=== PATIENT | female | born 1975 | race Caucasian/White ===

== ENCOUNTER 2019-06-22 13:58 | Outpatient (CLI) | payer OTHER, SELFPAY ==
--- NOTE | 2019-06-22 14:04 | XR_ITS ---
WS: [id number] LATERAL CERVICAL SPINE: 3 view. Lateral radiographs are performed in upright neutral, flexion and extension to the patient's toleranc e. HISTORY: CERVICAL DISC DISORDER WITH MYELOPATHY OF MID CERVICAL REGION COMPARISON: 01/29/2019 Straightening of the normal cervical lordosis. On extension there is 1.9 mm retrolisthesis of C2 and C4. During flexion the alignment remains normal. Small osteophytes extend anteriorly and posteriorly from C4 and C5. No fracture. XR/XR cervical spine fl/ex [id number] IMPRESSION: 1. Minimal retrolisthesis during extension of C2 and C4. No significant instab ility. Similar to the prior examination from 01/29/2019. 2. Mild spondylosis.
--- NOTE | 2019-06-22 14:04 | XR_ITS ---
WS: [id number] RIGHT SHOULDER: 3 VIEW(S) TECHNIQUE: Internal and external rotation with Y view. HISTORY: RIGHT SHOULDER PAIN COMPARISON: None available. No fracture or dislocation or soft tissue abnormality. Glenohumeral and AC joints are unremarkable. XR/XR shoulder RT min 2V* [id number] IMPRESSION: Normal RIGHT shoulder.
--- NOTE | 2019-06-22 14:05 | MR_ITS ---
WS: [id number] MRI CERVICAL SPINE HISTORY: CERVICAL DISC DISORDER WITH MYELOPATHY OF MID CERVICAL SPINE COMPARISON: 11/04/2018 Normal posterior cervical alignment. Small endplate osteophytes and disc bulging from C2-3 through C6 -7. No fractures or marrow edema. Signal within the cervical cord is normal. Visualized posterior fossa is unremarkable. Craniocervical junction, C1 and C2 relationship, odontoid process and soft tissues are normal. C2-C3: Normal. C3-C4: Normal. C4-C5: Mild osteophytic ridging. Mild disc bulging with no stenosis. C5-C6: Shallow central to LEFT paracentral disc protrusion and small vertebral body osteophytes. No s ignificant stenosis. Similar to the prior study. C6-C7: Mild osteophytic ridging and annular disc bulging. No significant stenosis C7-T1: Small osteophytes without stenosis. Paraspinal soft tissue are normal. MR/MR cervical spin wo con* [id number] IMPRESSION: 1. No significant central or foraminal stenosis. 2. Multilevel mild disc bulging and foraminal osteophytes as above. No signifi cant progression of disease since 11/04/2018. 3. Shallow LEFT paracentral disc protrusion at C5-6.
== END 2019-06-22 13:59 | disposition home or self-care (01) ==
LOC: RADWPI 14:02
PROVIDERS: Family Provider Family Medicine; PCP Family Medicine; Referring Provider Family Medicine; Visit Provider Licensed Practical Nurse
DX: M50.21 Other cervical disc displacement, high cervical region (principal); M25.78 Osteophyte, vertebrae; M47.892 Other spondylosis, cervical region
CPT/HCPCS: 72040; 72141; 73030

== ENCOUNTER → 2019-07-02 14:24 | Outpatient (BNVA) | payer OTHER, SELFPAY | PROVIDERS: Family Provider Family Medicine; PCP Family Medicine; Visit Provider Obstetrics & Gynecology | DX: N83.202 Unspecified ovarian cyst, left side (principal) | CPT/HCPCS: 76830 ==

== ENCOUNTER → 2019-07-03 11:48 | Outpatient (BNVA) | payer OTHER, SELFPAY | PROVIDERS: Family Provider Family Medicine; PCP Family Medicine; Referring Provider Licensed Practical Nurse; Visit Provider Psychiatry & Neurology Neurology | DX: M54.12 Radiculopathy, cervical region (principal); M79.601 Pain in right arm; Z87.891 Personal history of nicotine dependence | CPT/HCPCS: 95886; 95908 ==

== ENCOUNTER → 2019-07-07 16:17 | Outpatient (BNVA) | payer OTHER, SELFPAY | PROVIDERS: Family Provider Family Medicine; PCP Family Medicine; Visit Provider Internal Medicine | DX: I10 Essential (primary) hypertension (principal); K90.9 Intestinal malabsorption, unspecified; E03.9 Hypothyroidism, unspecified; G25.0 Essential tremor; G47.33 Obstructive sleep apnea (adult) (pediatric); Z99.89 Dependence on other enabling machines and devices; F32.9 Major depressive disorder, single episode, unspecified | CPT/HCPCS: 80053; 83036; 83540; 83550; 84443; 85025 ==

== ENCOUNTER 2019-07-20 09:04 | Outpatient (CLI) | payer OTHER, SELFPAY ==
--- NOTE | 2019-07-20 09:19 | XR_ITS ---
WS: [id number] KUB, 07/20/2019 Clinical Data: ureteral calculus Comparison: KUB, 06/01/2019. Findings: No abnormal intraabdominal masses or calcifications are seen. There is no dilatated small bowel or ev idence of obstruction. No definite renal or ureteral calculi are seen. There are phleboliths in the pelvis. There is a moder ate amount of fecal material throughout the colon. There is minimal calcification overlying the right ilium which is incidental. XR/XR KUB [id number] Impression: Negative KUB.
== END 2019-07-20 09:05 | disposition home or self-care (01) ==
LOC: RAD 09:10
PROVIDERS: Family Provider Family Medicine; PCP Family Medicine; Visit Provider Urology
DX: N20.1 Calculus of ureter (principal)
CPT/HCPCS: 74018; 81001

== ENCOUNTER 2019-08-05 15:23 | Outpatient (CLI) | payer OTHER, SELFPAY ==
--- NOTE | 2019-08-05 16:15 | CT_ITS ---
WS: [id number] CT CERVICAL SPINE TECHNIQUE: Noncontrast CT of the cervical spine with coronal and sagittal reformatted images. CLINICAL INFORMATION: Neck pain COMPARISON: MRI June 22, 2019 DLP: 1778.[address] scans at [facility] use at least one of these dose optimization techniques: automat ed exposure control; mA and/or kV adjustment per patient size (includes targeted exams where dose is matched to clinical indication); or iterative reconstruction. FINDINGS: Straightening of the normal cervical lordosis. No high-grade central canal narrowing. Normal C1-C2 ar ticulation. C2-C3: Normal. C3-C4: Normal. C4-C5: Mild osteophytic ridging. Mild facet arthropathy. Mild left and no significant right foraminal narrowing. C5-C6: Mild disc osteophytic ridging. Spinal canal and foramen are patent. Mild facet arthropathy. C6-C7: Disc osteophytic ridging. Spinal canal and foramen are patent. Mild facet arthropathy. C7-T1: No significant disc bulging. Spinal canal and foramen are patent. Visualized posterior nasopharynx: Normal. Prevertebral soft tissues: Normal. CT/CT cervical spin wo con* [id number] IMPRESSION: 1. Straightening of the normal cervical lordosis. 2. No significant central canal or foraminal stenosis unchanged since the prio r MRI. 3. Mild left C4-5 bony foraminal narrowing. 4. Mild facet arthropathy C4-C5 C5-C6 and C6-C7.
== END 2019-08-05 15:24 | disposition home or self-care (01) ==
LOC: RADWPI 15:25
PROVIDERS: Family Provider Family Medicine; PCP Internal Medicine; Visit Provider Licensed Practical Nurse
DX: M50.020 Cervical disc disorder with myelopathy, mid-cervical region, unspecified level (principal)
CPT/HCPCS: 72125

== ENCOUNTER 2019-10-13 12:23 | Outpatient (CLI) | payer OTHER, SELFPAY ==
--- NOTE | 2019-10-13 15:00 | XR_ITS ---
WS: [id number] XR KUB [id number] REASON FOR EXAM: URETEROLITHIASIS FINDINGS: Considerable fecal stasis throughout the colon is noted. Both kidneys today appear to be essentially normal in size configuration. In the proximal right urete r area there is a speck of calcification which may represent a stone. XR/XR KUB [id number] IMPRESSION: Questionable small stone at the ureter entrance into the pelvis. The right side
== END 2019-10-13 12:24 | disposition home or self-care (01) ==
LOC: RAD 12:24
PROVIDERS: Family Provider Family Medicine; PCP Internal Medicine; Visit Provider Urology
DX: N20.1 Calculus of ureter (principal); N30.80 Other cystitis without hematuria; Z87.442 Personal history of urinary calculi
CPT/HCPCS: 74018; 81001

== ENCOUNTER 2019-10-22 08:00 | Outpatient (CLI) | payer OTHER, SELFPAY | END 2019-10-22 09:00 | disposition home or self-care (01) | LOC: RADWPI 01-26 16:51 | PROVIDERS: PCP Internal Medicine; Visit Provider Specialist | DX: N94.6 Dysmenorrhea, unspecified (principal) | CPT/HCPCS: 85027 ==

== ENCOUNTER 2019-10-27 08:15 | Day surgery (SDC) | payer OTHER, SELFPAY ==
[2019-10-26 10:25] VITALS: BMI 37.8
--- NOTE | 2019-10-27 08:58 | ANES.PREANE2 ---
Pre-Anesthetic Assessment Pre-Anesthetic Assessment: Height/Weight: Height 1.63 m Weight 99.79 kg Preop Diagnosis: Menorrhagia with regular cycles, Dysmenorrhea Proposed Procedure: Operation Date: 10/27/19 10:00 Proposed Procedures p Hysteroscopy w/ Ablation w/ [id number]/N92.0/N94.6(Not Applicable) - Simón Barber MD Familial anesthetic complications: none Was Beta Poala taken within 24 hours: N/A Last intake: NPO > 8 ghrs Social: Social History: No alcohol and No tobacco Comment: former smoker Exam: Pre-Anes Outpt Exam: alert, oriented x 3, clear to auscultation bilaterally and regular rate & rhythm Airway: Cervical ROM: WNL MP: 3 Dentition: Full Pulmonary: Pulmonary: COPD and Sleep apnea (cpap) CV/HEM: CV/HEM: None reported : : None reported Hepatic: Hepatic: None reported GI: GI: GERD Metabolic: Metabolic: None reported Musc/skel: Musc/skel: None reported Neuropsych: Neuropsych: None reported Comments: cervical radiculopathy, essential tremor Anesthetic Plan: ASA status: 2 Anesthesia: MAC Risk of > 500 ml blood loss (7ml/kg in children): No PFSH Anesthesia PFSH: Medical History (Updated 10/22/19 @ 08:40 by Simón Barber MD) Cervical disc disorder with myelopathy of mid-cervical region Cervical disc disorder with radiculopathy Cystitis cystica Essential tremor History of kidney stones Malabsorption of iron Menorrhagia with regular cycle Menstrual headache Mixed stress and urge urinary incontinence Both urgency and stress incontinence. History of multiple pelvic surgeries including a fistula repair. At first visit for this August 2017 she elected to pursue more conservative options including pelvic floor exercises, bladder drill, pelvic rehabilitation etc. DOMINIC on CPAP Shoulder pain, right Spondylolisthesis of cervical region Surgical History H/O tubal ligation (~2000) History of colonoscopy (03/19/18) History of esophagogastroduodenoscopy (EGD) (03/19/18) History of hernia repair Developed hernia at ileostomy site. Required 2 different repairs with the last one using mesh. History of reversal of ileostomy History of vaginal surgery (~2010) Recto-vaginal fistula repairs (9 surgeries between 2010-). Includes use of mesh , fat flaps, and diverting ileostomy. S/P extracorporeal shock wave therapy (07/10/17) Dx: Left proximal ureteral stone with high-grade obstruction. Performed by Dr. Eaton at [facility] [place]. S/P extracorporeal shock wave therapy (08/23/17) Dx Left renal stone. Performed by Dr. Eaton at [facility] [place]. Family History Mother , at age 49 Brain aneurysm Father Diabetes Hypertension Other Heart disease Stroke Social History (Updated 10/22/19 @ 08:05 by Simón Barber MD) Smoking and tobacco status: former smoker Quit status (tobacco): has quit using tobacco Year quit tobacco: 04/10/2019 Alcohol intake: never Current occupation: [employer] Reproductive History: Date of last menstrual period: 07/08/19 Para: 3 Spontaneous abortions: No Data Anesthesia Cardiac Studies: No Data to Display
[2019-10-27 09:06] LABS: OR HCG Qualitative Urine Negative (Negative)
[2019-10-27] MEDS: sodium chloride 0.9% 1,000 ML 30 ML IV (09:23)
[2019-10-27] MEDS: ketorolac 30 mg/mL INJ IVP (09:23)
--- NOTE | 2019-10-27 09:41 | W.PM.OPSUD ---
Surgery/Procedure H&P Update DATE OF PROCEDURE: October 27, 2019 DATE H&P PERFORMED: 10/22/19 H&P UPDATE INFORMATION: I have reviewed H&P completed within last 30 days, I have examined patient prior to procedure, No changes to prior documentation and H&P is in [facility] EMR on date indicated PREOP DIAGNOSIS: Menorrhagia with regular cycles, Dysmenorrhea PLANNED PROCEDURE: Operation Date: 10/27/19 10:00 Proposed Procedures p Hysteroscopy w/ Ablation w/ [id number]/N92.0/N94.6(Not Applicable) - Simón Barber MD
--- NOTE | 2019-10-27 11:09 | P.OP_ITS ---
Operative Report Date of procedure: October 27, 2019 Pre-op Diagnosis: Menorrhagia with regular cycles, Dysmenorrhea Post-op Diagnosis: Menorrhagia with regular cycles, Dysmenorrhea Procedure Done: Hysteroscopy with endometrial ablation with NovaSure, Paracervical block Specimens removed/disposition: None Surgeon: Simón Barber Anesthesia: MAC and Other (Paracervical block) Estimated blood loss (mL): 5 IV fluids (mL): 600 Complications: None Findings: First to second-degree uterine prolapse with second-degree cystocele. Bulge of the left labia which is completely reducible, consistent with probable fluid- filled hernia. No bowel within the labia identified on palpation. Brief History: 44-year-old white female 3, para 3 who is status post tubal ligation. She had first presented to the office in March 2019 due to heavy painful menses. She reported that her cycles occurred every 25 days and she would bleed for 5 days with 4 days being heavy. During the heaviest time she was changing a pad every 2-3 hours. She was reporting up to quarter sized clots. She had been found to be iron deficient at that time. She had an ultrasound performed with no abnormalities noted. Endometrial biopsy was also negative. She was started on daily high-dose progesterone (norethindrone 7.5 mg daily) in an attempt to control her bleeding, which did stop the bleeding as long as she took the medication. At this point she wished to proceed to more definitive treatment in the form of an endometrial ablation. Procedure: The patient was taken to the operating room where IV sedation was started. She was prepped and draped in the usual sterile fashion in the dorsal supine position with legs in Braden style stirrups. Sequential compression boots had been placed prior to starting the case. Patient had voided just before coming to the operating room. Exam under anesthesia was performed and the patient was noted to have first to second-degree uterine prolapse with second-degree cystocele. Bulge of the left labia majora was present and consistent with a probable fluid-filled hernia. A weighted speculum was placed in the vagina and the cervix was grasped with a single-tooth tenaculum. A paracervical block was performed with a total of 11 mL of 2% lidocaine with epinephrine used. The cervix was serially dilated until a operative hysteroscope could be passed. Crystalloid solution was used as a distention media. The endometrial cavity was inspected and appeared normal. Both tubal ostia were identified. Using the NovaSure sound, endometrial cavity length was measured at 5.5 cm. The NovaSure device was inserted and device was deployed. The device was moved up and down and left and right until no further with adjustment occurred. Uterine width was measured at 4.2 cm. Settings were entered in the NovaSure machine and wattage was set at 127 Kaur. Cavity integrity check was performed and integrity confirmed. Device was then activated. Total treatment time was 30 seconds. Device was removed. The tenaculum was removed and there was minimal bleeding from the tenaculum site. Patient tolerated the procedure well. Sponge and needle counts were correct. DRAINS: None POSTOPERATIVE STATUS: The patient was transferred to the recovery room in satisfactory condition DISPOSITION: Discharge to home when criteria was met. FOLLOWUP APPOINTMENT: Followup appointment had been scheduled on 11/09/2019 in my office. MEDICATIONS: She is to resume her usual home medications. She is to stop the norethindrone.
[2019-10-27 11:14] VITALS: BP 172/93; PULSE 97; RESP 18; TEMP 36.6; O2SAT 98
[2019-10-27 11:33] VITALS: RESP 18; O2SAT 97
[2019-10-27] MEDS: oxyCODONE-APAP 10-325 mg Tablet 1 TAB PO (11:33)
[2019-10-27 11:49] VITALS: BP 167/97; PULSE 88; RESP 18; TEMP 36.6; O2SAT 98
== END 2019-10-27 12:06 | disposition home or self-care (01) ==
PROVIDERS: PCP Internal Medicine; Visit Provider Obstetrics & Gynecology
PROC: 0U598ZZ Destruction of Uterus, Via Natural or Artificial Opening Endoscopic (ICD-10-PCS; CPT 58563; principal; 2019-10-27 10:00)
DX: N92.0 Excessive and frequent menstruation with regular cycle (principal); N94.6 Dysmenorrhea, unspecified; Z87.891 Personal history of nicotine dependence; J44.9 Chronic obstructive pulmonary disease, unspecified; G47.30 Sleep apnea, unspecified; K21.9 Gastro-esophageal reflux disease without esophagitis; G47.33 Obstructive sleep apnea (adult) (pediatric)
CPT/HCPCS: 58563; 12345; 81025; 84703; J1885; J2001; J2405; J2704; J3010; J7030

== ENCOUNTER → 2019-12-10 10:20 | Outpatient (BNVA) | payer OTHER, SELFPAY | PROVIDERS: PCP Internal Medicine; Visit Provider Nurse Practitioner Family | DX: I10 Essential (primary) hypertension (principal); Z79.899 Other long term (current) drug therapy | CPT/HCPCS: 80053 ==

== ENCOUNTER → 2019-12-14 09:52 | Outpatient (BNVA) | payer OTHER, SELFPAY | PROVIDERS: PCP Internal Medicine; Visit Provider Urology | DX: N30.80 Other cystitis without hematuria (principal); N20.0 Calculus of kidney | CPT/HCPCS: 81001 ==

== ENCOUNTER 2019-12-28 16:58 | Emergency (ER) | payer OTHER, SELFPAY ==
[2019-12-28 17:20] VITALS: BP 109/78; PULSE 82; RESP 14; TEMP 36.5; O2SAT 98; BMI 37.8
[2019-12-28 17:50] LABS: Basophils % 0.6 %; Eosinophils # 0.1 10^3/uL (0.0-0.8); Eosinophils % 2.1 %; Hematocrit 36.6 % (37.0-47.0); Hemoglobin 12.2 g/dL (11.5-15.3); Lymphocytes # 2.9 10^3/uL (0.8-4.8); Mean Corpuscular HGB Conc 33.3 g/dL (30.0-36.0); Mean Corpuscular Hemoglobin 27.7 pg (28.0-34.0); Mean Platelet Volume 9.9 fL (7.4-10.4); Monocytes # 0.5 10^3/uL (0.2-0.9); Monocytes % 8.3 %; Neutrophils # 2.92 10^3/uL (1.8-7.7); Neutrophils % 44.7 %; Nucleated Red Blood Cells % 0 %; Platelet Count 282 10^3/cmm (130-400); Red Blood Count 4.41 10^6/uL (4.1-5.3); Red Cell Distribution Width 12.9 % (12.1-15.1); White Blood Count 6.5 10^3/uL (4.0-10.0)
[2019-12-28 18:04] LABS: Alanine Aminotransferase 32 U/L (0-33); Albumin Level 3.7 g/dL (3.5-5.2); Alkaline Phosphatase 55 IU/L (35-105); Anion Gap 15.1 (5-19); Aspartate Amino Transferase 28 U/L (0-32); Blood Urea Nitrogen 13 mg/dL (6-20); Calcium 8.2 mg/dL (8.5-10.5); Carbon Dioxide 27 mmol/L (22-29); Chloride 100 mmol/L (98-107); Globulin 2.5 g/dL (1.3-4.6); Glomerular Filtration Rate 108.6 mL/min (90-130); Glucose 114 mg/dL (65-115); Lipase 17 U/L (13-60); Osmolality Calculated 285 mOsm/kg (285-295); Potassium 3.1 mmol/L (3.5-5.1); Sodium 139 mmol/L (136-145); Total Bilirubin 0.2 mg/dL (0.15-1.2); Total Protein 6.2 g/dL (6.6-8.7)
--- NOTE | 2019-12-28 18:46 | CTR_ITS ---
PROCEDURE INFORMATION: Exam: CT Abdomen And Pelvis With Contrast Exam date and time: 12/28/2019 6:53 PM Age: 44 years old Clinical indication: Abdominal pain; Generalized; Prior surgery; Surgery date: 6+ months; Surgery type: Ileostomy; Hernia; Patient HX: PT states abd pain tenderness x1wk after eating and drinking, burning after eating TECHNIQUE: Imaging protocol: Computed tomography of the abdomen and pelvis with intravenous contrast. Radiation optimization: All CT scans at this facility use at least one of these dose optimization techniques: automated exposure control; mA and/or kV adjustment per patient size (includes targeted exams where dose is matched to clinical indication); or iterative reconstruction. Contrast material: OMNIPAQUE 300; Contrast volume: 95 ml; Contrast route: INTRAVENOUS (IV); COMPARISON: CT Abdomen/Pelvis Renal [id number] 05/28/2019 10:32 AM RADIATION DOSE METRICS: Total DLP (mGy-cm): 1524.51 FINDINGS: Liver: Normal. No mass. Gallbladder and bile ducts: Normal. No calcified stones. No ductal dilation. Pancreas: Normal. No ductal dilation. Spleen: Normal. No splenomegaly. Adrenals: Normal. No mass. Kidneys and ureters: Normal. No hydronephrosis. Stomach and bowel: Unremarkable. No obstruction. No mucosal thickening. Appendix: No evidence of appendicitis. Intraperitoneal space: Unremarkable. No free air. No significant fluid collection. Vasculature: One or more calcified pelvic phleboliths. Lymph nodes: Unremarkable. No enlarged lymph nodes. Bladder: Unremarkable as visualized. Reproductive: Unremarkable as visualized. Bones/joints: Moderate L4-L5 degenerative disc disease and spondylosis. Soft tissues: Unremarkable. CT/CT abdomen pelvis w con* [id number] IMPRESSION: No acute findings. Radiation Dose CTDIVOL = (mGy): DLP = 1524.51 (mGy-cm)
--- NOTE | 2019-12-28 19:27 | ED_ITS ---
HPI - Abdominal Pain General: Chief Complaint: Abdominal Pain Stated Complaint: ABD PAIN Time Seen by Provider: 12/28/19 18:43 Source: patient Mode of arrival: ambulatory Limitations: no limitations History of Present Illness: HPI narrative: Heidy is a nice 44-year-old female who comes in complaining of burning periumbilical abdominal pain. Patient states that she is had nauseousness and anytime she eats or drinks the pain is made worse. She is had similar pain in the past but no cause can be determined. Patient denies any fevers, chills, vaginal discharge or bleeding. She denies any urinary symptoms. She states eating and drinking makes her symptoms worse and nothing seems to make them better. Patient denies any blood in her stools or black tarry stools. Associated Symptoms: Reports nausea and vomiting; Denies chills, coffee ground emesis, constipation, GI cramping, diarrhea, dysuria, fever(s), heartburn, hematochezia, hematuria, hematemesis, melena and syncope Related Data: Date of Last Menstrual Period: 07/08/19 Review of Systems Const: Denies: fever(s), chills, body aches, fatigue, malaise or diaphoresis Eyes: Denies: change in vision, blurry vision, blind spots, photophobia, eye discharge or eye redness ENMT: Denies: throat pain, odynophagia, hoarseness, swelling of lips/tongue, oral sores, ear or mastoid pain, ear discharge, change in hearing or nasal discharge Card: Denies: chest pain, palpitations, irregular heart rhythm, edema, lightheadedness, syncope, pre-syncope, dyspnea on exertion or orthopnea Resp: Denies: dyspnea, productive cough, non-productive cough, wheezing, hemoptysis or chest congestion GI: Reports: abdominal pain, nausea and vomiting; Denies: hematemesis, coffee ground emesis, heartburn, diarrhea, constipation, GI cramping, hematochezia or melena : Denies: flank pain, dysuria, urinary frequency, urinary urgency or hematuria Musc: Denies: neck pain, back pain, extremity pain, extremity swelling, joint pain, joint swelling, joint redness, joint warmth or joint stiffness Skin/Breast: Denies: rash, pruritus, erythema, skin tenderness or jaundice Neuro: Denies: headache(s), numbness in extremities, weakness in extremities, sensory changes, lack of coordination, difficulty walking, dizziness, vertigo, confusion, Slurred speech present or seizure-like activity Jordi/Lymph: Denies: easy bruising, easy bleeding, petechiae, purpura or enlarged lymph nodes All/Imm: Denies: urticaria, throat swelling, tongue swelling, facial swelling or acute wheezing PFSH ED PFSH: Medical History Bilateral renal stones Cervical disc disorder with myelopathy of mid-cervical region Cervical disc disorder with radiculopathy Cystitis cystica Essential tremor History of kidney stones Malabsorption of iron Menorrhagia with regular cycle Menstrual headache Mixed stress and urge urinary incontinence Both urgency and stress incontinence. History of multiple pelvic surgeries including a fistula repair. At first visit for this August 2017 she elected to pursue more conservative options including pelvic floor exercises, bladder drill, pelvic rehabilitation etc. DOMINIC on CPAP Shoulder pain, right Spondylolisthesis of cervical region Surgical History H/O tubal ligation (~2000) History of colonoscopy (03/19/18) History of endometrial ablation (10/27/19) Hysteroscopy with NovaSure endometrial ablation. Dx: Menorrhagia. Performed by Dr. Barber at [facility] in [place], [place] History of esophagogastroduodenoscopy (EGD) (03/19/18) History of hernia repair Developed hernia at ileostomy site. Required 2 different repairs with the last one using mesh. History of reversal of ileostomy History of vaginal surgery (~2010) Recto-vaginal fistula repairs (9 surgeries between 2010-). Includes use of mesh , fat flaps, and diverting ileostomy. S/P extracorporeal shock wave therapy (07/10/17) Dx: Left proximal ureteral stone with high-grade obstruction. Performed by Dr. Eaton at [facility]. S/P extracorporeal shock wave therapy (08/23/17) Dx Left renal stone. Performed by Dr. Eaton at [facility]. Family History Mother , at age 49 Brain aneurysm Father Diabetes Hypertension Other Heart disease Stroke Social History (Reviewed 12/28/19 @ 19:28 by Lisa Glass Smoking and tobacco status: former smoker Quit status (tobacco): has quit using tobacco Year quit tobacco: 04/10/2019 Alcohol intake: never Marital status: Current occupation: [employer] History of recent travel: No Female Reproductive History: Date of last menstrual period: 07/08/19 Para: 3 Spontaneous abortions: No Physical Exam Const: COMMON NORMALS: no acute distress, patient oriented x3, no limitations, healthy appearing and well nourished GENERAL APPEARANCE: cooperative, well kempt and well developed HENMT: COMMON NORMALS: normocephalic, atraumatic, external ears normal, EAC's normal and Normal external nose present HEAD & SCALP: normal to inspection, normocephalic and atraumatic FACE & SINUS: normal facial exam and face symmetric NOSE: Normal external nose present and Normal nares present EX TERNAL EAR: Yes external ears normal EXTERNAL AUDITORY CANAL: EAC's normal MOUTH: Normal oral and palatal mucosa present, lip normal and tongue normal Eye: COMMON NORMALS: Equal, round and reactive pupils present and conjunctivae normal GENERAL EYE: appearance normal, both eyes and all related structures ALIGNMENT: Yes alignment normal PERIORBITAL: periorbital findings normal EYELID: eyelids normal CONJUNCTIVA: Yes conjunctivae normal SCLERA: sclerae normal PUPIL: Yes Equal, round and reactive pupils present Neck/C-Spine: COMMON NORMALS: full ROM, no lymphadenopathy, supple, no meningeal signs and no JVD GENERAL: Yes normal visual inspection and Yes trachea midline Chest: COMMONS NORMALS: normal inspection of the chest and normal palpation of entire chest wall Resp: COMMON NORMALS: normal respiratory effort, No retractions and No use of accessory muscles EFFORT & INSPECTION: Yes able to speak in complete sentences and Yes symmetric chest movement AUSCULTATION: no crackles, no rales, no rhonchi and no wheezes Cardio: COMMON NORMALS: no JVD, regular rate, regular rhythm, S1 normal heart sound present and S2 normal heart sound present RATE: regular rate RHYTHM: regular rhythm HEART SOUNDS: S1 normal heart sound present, S2 normal heart sound present, no click, no gallops, no murmurs, no rubs and abnormal split S2 GI: PALPATION: Yes Tenderness to palpation present (GI) (Moderate diffusely) and No Hernia present : COMMON NORMALS: Yes no CVA tenderness BLADDER/KIDNEY EXAM: Yes no CVA tenderness EXTERNAL FEMALE EXAM: No Hernia present Back/Pelvis: COMMON NORMALS: no CVA tenderness, thoracic and lumbar spine normal to inspection, no thoracic nor lumbar tenderness and thoraco-lumbar ROM normal Extremity: COMMON NORMALS: normal to inspection, full ROM, capillary refill normal, no joint enlargement, no clubbing, cyanosis or edema and no calf tenderness Neuro: COMMON NORMALS: patient oriented x3, CN's II-XII intact bilaterally, moves all extremities, no focal motor deficits and no sensory deficits noted MENINGEAL SIGNS: Yes no meningeal signs SPEECH: speech normal Psych: COMMON NORMALS: mental status grossly normal, Normal thought process present, cooperative, normal affect, speech normal and activity/motor behavior normal APPEARANCE: Yes well kempt SPEECH: Yes normal speech THOUGHT PROCESS: Normal thought process present Skin: COMMON NORMALS: no rashes or lesions noted, turgor normal, no jaundice, no petechiae and no mottling GENERAL SKIN EXAM: no rashes or lesions noted and turgor normal Course Vital Signs: Vital signs: Vital Signs Temperature 97.7 F 12/28/19 17: Pulse Rate 82 12/28/19 17: Respiratory Rate 18 12/28/19 19:33 Blood Pressure 109/78 12/28/19 17: Pulse Oximetry 98 12/28/19 19:33 MDM - Abdominal Pain MDM Narrative: Medical decision making narrative: The patient is feeling better and ready to go home. Her ultrasound is unremarkable except for fatty liver and her CT is unremarkable as well. Patient agrees to return should her symptoms change or worsen but she would rather follow-up with Dr. Dias. Dr. Dias could perform an EGD as well as an outpatient HIDA scan to determine the cause for the patient's pain. At this time I see no evidence of appendicitis and she agrees to return should that symptoms develop such as migration to the lower part of her abdomen, fever, vomiting or pain worsens at all. Lab Data: Attestation: I reviewed the patient's lab results. Labs: Lab Results 12/28/19 12/28/19 12/28/19 Range/Units 17:43 17:43 17:43 WBC 6.5 (4.0-10.0) 10^3/ uL RBC 4.41 (4.1-5.3) 10^6/u L Hgb 12.2 (11.5-15.3) g/dL Hct 36.6 L (37.0-47.0) % MCV 83.0 (81-99) fL MCH 27.7 L (28.0-34.0) pg MCHC 33.3 (30.0-36.0) g/dL RDW 12.9 (12.1-15.1) % Plt Count 282 (130-400) 10^3/c mm MPV 9.9 (7.4-10.4) fL Neut % (Auto) 44.7 % Lymph % (Auto) 44.0 % [place] % (Auto) 8.3 % Eos % (Auto) 2.1 % Baso % (Auto) 0.6 % Neut # (Auto) 2.92 (1.8-7.7) 10^3/u L Lymph # (Auto) 2.9 (0.8-4.8) 10^3/u L [place] # (Auto) 0.5 (0.2-0.9) 10^3/u L Eos # (Auto) 0.1 (0.0-0.8) 10^3/u L Baso # (Auto) 0.0 (0.0-0.1) 10^3/u L Nucleated RBC % (a uto) 0 % Nucleated RBCs # 0.0 /100WBC Sodium 139 (136-145) mmol/L Potassium 3.1 L (3.5-5.1) mmol/L Chloride 100 (98-107) mmol/L Carbon Dioxide 27 (22-29) mmol/L Anion Gap 15.1 (5-19) BUN 13 (6-20) mg/dL Creatinine 0.6 (0.5-0.9) mg/dL GFR Calculation 108.6 (90-130) mL/min Glucose 114 (65-115) mg/dL Calculated Osmolal ity 285 (285-295) mOsm/k g Lactic Acid 2.0 (0.5-2.2) mmol/L Calcium 8.2 L (8.5-10.5) mg/dL Total Bilirubin 0.2 (0.15-1.2) mg/dL AST 28 (0-32) U/L ALT 32 (0-33) U/L Alkaline Phosphata se 55 (35-105) IU/L Total Protein 6.2 L (6.6-8.7) g/dL Albumin 3.7 (3.5-5.2) g/dL Globulin 2.5 (1.3-4.6) g/dL Lipase 17 (13-60) U/L Urine Color (Yellow) Urine Appearance (CLEAR) Urine pH (5-7) Ur Specific Gravit y (1.005-1.030) Urine Protein (Negative) Urine Glucose (UA) (Normal) Urine Ketones (Negative) Urine Blood (Negative) Urine Nitrate (Negative) Urine Bilirubin (NEGATIVE) Urine Urobilinogen (Negative) mg/dL Ur Leukocyte Marjorie ase (Negative) Urine RBC (0-2) /hpf Urine WBC (0-5) /hpf Ur Squamous Epith Cells (0-5) Amorphous Sediment Urine Bacteria (NONE) Urine Mucus H. pylori IgG Anti body (Negative) 12/28/19 12/28/19 Range/Units 17:43 19:35 WBC (4.0-10.0) 10^3/ uL RBC (4.1-5.3) 10^6/u L Hgb (11.5-15.3) g/dL Hct (37.0-47.0) % MCV (81-99) fL MCH (28.0-34.0) pg MCHC (30.0-36.0) g/dL RDW (12.1-15.1) % Plt Count (130-400) 10^3/c mm MPV (7.4-10.4) fL Neut % (Auto) % Lymph % (Auto) % [place] % (Auto) % Eos % (Auto) % Baso % (Auto) % Neut # (Auto) (1.8-7.7) 10^3/u L Lymph # (Auto) (0.8-4.8) 10^3/u L [place] # (Auto) (0.2-0.9) 10^3/u L Eos # (Auto) (0.0-0.8) 10^3/u L Baso # (Auto) (0.0-0.1) 10^3/u L Nucleated RBC % (a uto) % Nucleated RBCs # /100WBC Sodium (136-145) mmol/L Potassium (3.5-5.1) mmol/L Chloride (98-107) mmol/L Carbon Dioxide (22-29) mmol/L Anion Gap (5-19) BUN (6-20) mg/dL Creatinine (0.5-0.9) mg/dL GFR Calculation (90-130) mL/min Glucose (65-115) mg/dL Calculated Osmolal ity (285-295) mOsm/k g Lactic Acid (0.5-2.2) mmol/L Calcium (8.5-10.5) mg/dL Total Bilirubin (0.15-1.2) mg/dL AST (0-32) U/L ALT (0-33) U/L Alkaline Phosphata se (35-105) IU/L Total Protein (6.6-8.7) g/dL Albumin (3.5-5.2) g/dL Globulin (1.3-4.6) g/dL Lipase (13-60) U/L Urine Color Yellow (Yellow) Urine Appearance Clear (CLEAR) Urine pH 6 (5-7) Ur Specific Gravit y 1.020 (1.005-1.030) Urine Protein Neg (Negative) Urine Glucose (UA) Norm (Normal) Urine Ketones Negative (Negative) Urine Blood 2+ H (Negative) Urine Nitrate Negative (Negative) Urine Bilirubin Neg (NEGATIVE) Urine Urobilinogen Neg (Negative) mg/dL Ur Leukocyte Marjorie ase Negative (Negative) Urine RBC 0-4 H (0-2) /hpf Urine WBC 0-4 H (0-5) /hpf Ur Squamous Epith Cells 15-25 H (0-5) Amorphous Sediment Not Reportable Urine Bacteria 1+ H (NONE) Urine Mucus 3+ H. pylori IgG Anti body Negative (Negative) Imaging Data ^: CT Abd/Pel: Radiologist's impression: [address] [address] [address] Scan Report Signed Patient: Heidy Coppola Unit #: [id number] : [id number] Age/Sex: 44 / F ADM Date: 12/28/19 Loc: ER Room/Bed: Attending Dr: Ordering Provider/Ordering MD: Lisa Sarmiento DO Date of Service: 12/28/19 Procedure(s): CT abdomen pelvis w con* [id number] Accession Number(s): [id number] Report Number: [id number] PROCEDURE INFORMATION: Exam: CT Abdomen And Pelvis With Contrast Exam date and time: 12/28/2019 6:53 PM Age: 44 years old Clinical indication: Abdominal pain; Generalized; Prior surgery; Surgery date: 6+ months; Surgery type: Ileostomy; Hernia; Patient HX: PT states abd pain tenderness x1wk after eating and drinking, burning after eating TECHNIQUE: Imaging protocol: Computed tomography of the abdomen and pelvis with intravenous contrast. Radiation optimization: All CT scans at this facility use at least one of these dose optimization techniques: automated exposure control; mA and/or kV adjustment per patient size (includes targeted exams where dose is matched to clinical indication); or iterative reconstruction. Contrast material: OMNIPAQUE 300; Contrast volume: 95 ml; Contrast route: INTRAVENOUS (IV); COMPARISON: CT Abdomen/Pelvis Renal [id number] 05/28/2019 10:32 AM RADIATION DOSE METRICS: Total DLP (mGy-cm): 1524.51 FINDINGS: Liver: Normal. No mass. Gallbladder and bile ducts: Normal. No calcified stones. No ductal dilation. Pancreas: Normal. No ductal dilation. Spleen: Normal. No splenomegaly. Adrenals: Normal. No mass. Kidneys and ureters: Normal. No hydronephrosis. Stomach and bowel: Unremarkable. No obstruction. No mucosal thickening. Appendix: No evidence of appendicitis. Intraperitoneal space: Unremarkable. No free air. No significant fluid collection. Vasculature: One or more calcified pelvic phleboliths. Lymph nodes: Unremarkable. No enlarged lymph nodes. Bladder: Unremarkable as visualized. Reproductive: Unremarkable as visualized. Bones/joints: Moderate L4-L5 degenerative disc disease and spondylosis. Soft tissues: Unremarkable. CT/CT abdomen pelvis w con* [id number] IMPRESSION: No acute findings. Radiation Dose CTDIVOL = (mGy): DLP = 1524.51 (mGy-cm) Dictated By: Jaime Feliciano MD Signed By: Jaime Feliciano MD Signed Date/Time: 12/28/192044 DD/ 43 Discharge Plan Discharge Patient Disposition: Home, Self-Care Clinical Impression: Abdominal pain Qualifiers: Abdominal location: periumbilical Qualified Code(s): R10.33 - Periumbilical pain Condition: Stable Prescriptions: New Zofran 4 mg tablet 4 mg PO Q6H PRN (Reason: nausea and vomiting) Qty: 20 RF: 0 No Action albuterol sulfate [Proventil HFA] 90 mcg/actuation HFA aerosol inhaler 2 puff INHALATION Q6H PRN (Reason: shortness of breath or wheezing) Qty: 6.7 RF: 6 tizanidine 4 mg capsule 4 mg PO BID PRN (Reason: Spasms) RF: 0 Aimovig Autoinjector 70 mg/mL auto-injector 70 mg SUBCUT .ONCE MONTHLY RF: 0 vortioxetine 20 mg tablet 20 mg PO DAILY Qty: 90 RF: 3 omeprazole 40 mg capsule,delayed release(DR/EC) 40 mg PO DAILY Qty: 90 RF: 3 aripiprazole [Abilify] 2 mg tablet 1 mg PO DAILY 30 Days Qty: 15 RF: 0 hydrochlorothiazide 25 mg tablet 25 mg PO DAILY Qty: 30 RF: 0 doxycycline hyclate 100 mg tablet 100 mg PO BID Qty: 60 RF: 2 meloxicam 7.5 mg tablet 7.5 mg PO DAILY RF: 0 oxycodone-acetaminophen 5-325 mg tablet 1 tab PO QID PRN (Reason: Pain) RF: 0 gabapentin 300 mg capsule 300 mg PO DAILY RF: 0 Ubrelvy See Rx Instructions .ROUTE .COMPLEX RF: 0 Discharge Orders: Discharge Order (Routine); Ordered 12/28/19 Ordered By: Lisa Sarmiento Referrals: Riccardo Saba MD [Primary Care Provider] - Lisa Sarmiento [Emergency Provider] - Doron Dias MD [Physician] - 1-3 days Discharge Diet: Advance as tolerated and Clear Liquid Discharge Activity: Increase activity as tolerated Patient Instructions: Abdominal Pain (ED) Activity Restrictions/Additional Instructions: Please return to the ER immediately for any of the signs or symptoms listed on your discharge instruction sheets, worsening/changing of your symptoms, you are not getting better as quickly as expected, or for ANY other cause or concerns. If your pain worsens or changes in any way please return to the ER immediately for recheck. Take your Zofran as needed but if your pain worsens or migrates to anywhere else in her abdomen specifically the lower part of your abdomen return to the ER immediately as developing appendicitis is still a possibility. Be certain to follow-up with Dr. Dias for outpatient EGD and possible HIDA scan. Continue your omeprazole at home for your reflux disease. Coding Level of Care Code ED C 40A Crew Chief for Chg Fwd Exam Comprehensive
[2019-12-28] MEDS: ondansetron 2 mg/ML SDV 2 mL 4 MG IVP ×2 (19:28→21:11)
[2019-12-28 19:30] LABS: H. Pylori IgG Antibody Negative (Negative)
[2019-12-28 19:33] VITALS: RESP 18; O2SAT 98
[2019-12-28] MEDS: HYDROmorphone 1 mg/mL INJ 1 mL 0.5 MG IVP (19:33)
[2019-12-28] MEDS: sodium chloride 0.9% 1,000 ML 999 ML IV (19:36)
[2019-12-28 20:03] LABS: Add Urine Microscopic? YES; Bacteria Urine 1+; Bilirubin Urine Neg (NEGATIVE); Blood Urine 2+ (Negative); Glucose Urine UA Norm (Normal); Ketones Urine Negative (Negative); Leukocyte Esterase Urine Negative (Negative); Mucus Urine 3+; Nitrate Urine Negative (Negative); Protein Urine Neg (Negative); RBC Urine 0-4 /hpf (0-2); Squamous Epithelial Cell Urine 15-25 (0-5); Urine Appearance Clear (CLEAR); Urine Color Yellow (Yellow); Urobilinogen Urine Neg (Negative); WBC Urine 0-4 /hpf (0-5); pH Urine 6 (5-7)
[2019-12-28 20:04] LABS: Add Urine Culture? No
[2019-12-28] MEDS: iohexol 300 mg/mL 100 mL Btl IV (20:17)
--- NOTE | 2019-12-28 21:24 | US_ITS ---
WS: [id number] RIGHT UPPER QUADRANT ULTRASOUND HISTORY: Pain COMPARISON: None available. Liver: 16.8 cm in length. Liver is enlarged with increased attenuation. The entire liver is not well due to the attenuation. Marked hepatic steatosis and with coarsened echotexture. Gallbladder: Normally distended gallbladder with no stones or wall thickening. CBD: 0.4 cm Pancreas: Not well visualized. Right kidney: 12.2 cm in length. Normal echogenicity with no mass or hydronephrosis. Aorta and IVC: Unremarkable. No ascites. US/US gall bladder [id number] IMPRESSION: 1. Moderate hepatomegaly with severe hepatic steatosis. 2. Negative gallbladder.
[2019-12-28] MEDS: ondansetron 4 MG Tablet PO (22:34)
[2019-12-28 22:35] VITALS: BP 150/93; PULSE 77; RESP 18; O2SAT 99
== END 2019-12-28 22:35 | disposition home or self-care (01) ==
PROVIDERS: Family Medicine; Emergency Provider Emergency Medicine; PCP Internal Medicine
DX: R10.33 Periumbilical pain (principal); Z87.891 Personal history of nicotine dependence; Z87.442 Personal history of urinary calculi
CPT/HCPCS: 12345; 36415; 74177; 76705; 80053; 81001; 81003; 83605; 83690; 85025; 86677; 96361; 96374; 96375; 96376; 99283; 99284; J1170; J2405; J7030; Q0162; Q9967

== ENCOUNTER 2020-01-04 08:36 | Day surgery (SDC) | payer OTHER, SELFPAY ==
[2019-12-30 15:32] VITALS: BMI 37.8
[2020-01-04 08:57] VITALS: BP 133/97; PULSE 80; RESP 16; TEMP 36.6; O2SAT 98
[2020-01-04] MEDS: sodium chloride 0.9% 1,000 ML 30 ML IV (09:05)
--- NOTE | 2020-01-04 09:38 | P.ANESASSM_ITS ---
Pre-Anesthetic Assessment Pre-Anesthetic Assessment: Height/Weight: Height 1.63 m Weight 99.79 kg Temp Pulse Resp BP Pulse Ox 97.9 F 80 16 133/97 98 01/04/20 08:57 01/04/20 08:57 01/04/20 08:57 01/04/20 08:57 01/04/20 08:57 Preop Diagnosis: Menorrhagia with regular cycles, Dysmenorrhea Proposed Procedure: Operation Date: 01/04/20 09:30 Proposed Procedures p EGD 90991 R10.13(Not Applicable) - Riccardo Saba MD Familial anesthetic complications: none Was Beta Paola taken within 24 hours: N/A Last intake: Intake Last Liquid Date 01/03/20 Last Liquid Time 22:00 Last Solid Date 01/03/20 Last Solid Time 22:00 Last Intake: 22:00 Social: Social History: No alcohol and No tobacco (stop 2018) Exam: Pre-Anes Outpt Exam: alert, oriented x 3, clear to auscultation bilaterally and regular rate & rhythm Airway: Submandibular: WNL Cervical ROM: WNL MP: 2 Dentition: Full Pulmonary: Pulmonary: COPD CV/HEM: CV/HEM: HTN : : None reported Hepatic: Hepatic: None reported GI: GI: GERD (controlled) Metabolic: Metabolic: None reported Musc/skel: Musc/skel: None reported Neuropsych: Neuropsych: Depression and [place] Anesthetic Plan: ASA status: 2 Anesthesia: Anesthesia Evaluation and MAC Risk of > 500 ml blood loss (7ml/kg in children): No Meds/Allergies Current Medications: Current Medications Generic Name Dose Route Start Last Admin Trade Name Freq PRN Reason Stop Dose Admin Sodium Chloride 1,000 mls @ 30 ml s/hr 01/04/20 08:45 01/04/20 09:05 Sodium Chloride 0.9% IV 01/05/20 08:44 30 mls/hr .Q24H BARRY Administration PFSH Anesthesia PFSH: Medical History (Updated 12/29/19 @ 15:26 by Peggy Gomez APRN) Bilateral renal stones Cervical disc disorder with myelopathy of mid-cervical region Cervical disc disorder with radiculopathy Cystitis cystica Essential tremor History of kidney stones Malabsorption of iron Menorrhagia with regular cycle Menstrual headache Mixed stress and urge urinary incontinence Both urgency and stress incontinence. History of multiple pelvic surgeries including a fistula repair. At first visit for this August 2017 she elected to pursue more conservative options including pelvic floor exercises, bladder drill, pelvic rehabilitation etc. DOMINIC on CPAP Shoulder pain, right Spondylolisthesis of cervical region Surgical History H/O tubal ligation (~2000) History of colonoscopy (03/19/18) History of endometrial ablation (10/27/19) Hysteroscopy with NovaSure endometrial ablation. Dx: Menorrhagia. Performed by Dr. Barber at [facility] in [place], [place] History of esophagogastroduodenoscopy (EGD) (03/19/18) History of hernia repair Developed hernia at ileostomy site. Required 2 different repairs with the last one using mesh. History of reversal of ileostomy History of vaginal surgery (~2010) Recto-vaginal fistula repairs (9 surgeries between 2010-). Includes use of mesh , fat flaps, and diverting ileostomy. S/P extracorporeal shock wave therapy (07/10/17) Dx: Left proximal ureteral stone with high-grade obstruction. Performed by Dr. Eaton at [facility]. S/P extracorporeal shock wave therapy (08/23/17) Dx Left renal stone. Performed by Dr. Eaton at [facility]. Family History Mother , at age 49 Brain aneurysm Father Diabetes Hypertension Other Heart disease Stroke Social History Smoking and tobacco status: former smoker Quit status (tobacco): has quit using tobacco Year quit tobacco: 04/10/2019 Alcohol intake: never Marital status: Current occupation: [employer] History of recent travel: No Female Reproductive History: Date of last menstrual period: 07/08/19 Para: 3 Spontaneous abortions: No Data Anesthesia Cardiac Studies: No Data to Display
--- NOTE | 2020-01-04 09:39 | W.PM.OPSUD ---
Surgery/Procedure H&P Update DATE OF PROCEDURE: January 04, 2020 DATE H&P PERFORMED: 12/29/19 PREOP DIAGNOSIS: Menorrhagia with regular cycles, Dysmenorrhea PLANNED PROCEDURE: Operation Date: 01/04/20 09:30 Proposed Procedures p EGD 50760 R10.13(Not Applicable) - Riccardo Saba MD
[2020-01-04 10:00] VITALS: BP 163/97; PULSE 75; RESP 16; TEMP 36.6; O2SAT 100
--- NOTE | 2020-01-04 10:16 | ANE.PACU2 ---
Inpatient post-anesthesia follow up: Airway intact: Yes Vital signs: Temperature 97.9 F Pulse Rate 75 Respiratory Rate 16 Blood Pressure 163/97 Pulse Oximetry 100 Oxygen Delivery Me thod Nasal Cannula Oxygen Flow Rate 2 Fraction of Inspir ed Oxygen Hydration adequate: Yes Nausea and vomiting: Yes (mild nausea with meds given) Pain level: 1 Mental status: Baseline
[2020-01-04 10:25] VITALS: BP 165/96; PULSE 69; RESP 18; O2SAT 100
== END 2020-01-04 10:42 | disposition home or self-care (01) ==
PROVIDERS: PCP Internal Medicine; Visit Provider Internal Medicine
PROC: 0DJ08ZZ Inspection of Upper Intestinal Tract, Via Natural or Artificial Opening Endoscopic (ICD-10-PCS; CPT 43235; principal; 2020-01-04 09:30)
DX: N92.0 Excessive and frequent menstruation with regular cycle (principal); N94.6 Dysmenorrhea, unspecified; R10.13 Epigastric pain; G47.33 Obstructive sleep apnea (adult) (pediatric); Z87.891 Personal history of nicotine dependence; I10 Essential (primary) hypertension; J44.9 Chronic obstructive pulmonary disease, unspecified; K21.9 Gastro-esophageal reflux disease without esophagitis; K92.0 Hematemesis
CPT/HCPCS: 12345; 43235; J2405; J2704; J7030

== ENCOUNTER → 2020-01-11 15:11 | Outpatient (BNVA) | payer OTHER, SELFPAY | PROVIDERS: PCP Internal Medicine; Visit Provider Nurse Practitioner Family | DX: F33.42 Major depressive disorder, recurrent, in full remission (principal); I10 Essential (primary) hypertension; R60.0 Localized edema | CPT/HCPCS: 80053 ==

== ENCOUNTER → 2020-03-10 15:25 | Outpatient (BNVA) | payer OTHER, SELFPAY | PROVIDERS: PCP Internal Medicine; Visit Provider Nurse Practitioner Family | DX: R73.09 Other abnormal glucose (principal) | CPT/HCPCS: 80053 ==

== ENCOUNTER → 2020-03-14 10:05 | Outpatient (BNVA) | payer OTHER, SELFPAY | PROVIDERS: PCP Internal Medicine; Visit Provider Nurse Practitioner Family | DX: R73.09 Other abnormal glucose (principal) | CPT/HCPCS: 83036 ==

== ENCOUNTER 2020-03-16 10:39 | Outpatient (CLI) | payer OTHER, SELFPAY ==
--- NOTE | 2020-03-16 11:45 | XR_ITS ---
WS: [id number] XR KUB [id number] REASON FOR EXAM: RENAL STONES FINDINGS: Bowel gas pattern is unremarkable. No free air or retroperitoneal air. No urinary tract calculi are identified. XR/XR KUB [id number] IMPRESSION: No urinary tract calculi are identified. The CT scan of the abdomen and pelvis done 01/05/2020 demonstrates no urinary tract calculi.
== END 2020-03-16 10:40 | disposition home or self-care (01) ==
LOC: RAD 10:43
PROVIDERS: PCP Internal Medicine; Visit Provider Urology
DX: N20.0 Calculus of kidney (principal)
CPT/HCPCS: 74018; 81001

== ENCOUNTER 2020-03-26 13:37 | Emergency (ER) | payer OTHER, SELFPAY ==
[2020-03-26 13:45] VITALS: BP 148/90; PULSE 75; RESP 14; TEMP 36.2; O2SAT 97; BMI 36.7
--- NOTE | 2020-03-26 13:59 | W.ED.HA ---
HPI - Headache General: Chief Complaint: Headache Stated Complaint: headache Time Seen by Provider: 03/26/20 13:55 History of Present Illness: HPI Narrative: Is here with post procedure myelogram headache. 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 Feels better when she is laying down. Nupiotr nausea and vomiting MD elicited complaint: headache Pertinent past history: other (Myelogram yesterday) Onset (ago): hour(s) Onset description: gradually Location: generalized Severity: moderate Quality & Timing: aching Exacerbating factors: exertion and sitting/standing Relieving factors: rest and other (Laying down) Context: recent spinal/epidural procedure Associated symptoms: Deny chest pain, fever(s), nausea, rash or vomiting Review of Systems Const: Denies: fever(s), chills or body aches Eyes: Denies: change in vision or blurry vision ENMT: Denies: throat pain or nasal congestion Card: Denies: chest pain or dyspnea on exertion Resp: Denies: dyspnea, productive cough or non-productive cough GI: Denies: abdominal pain, nausea or vomiting Musc: Denies: neck pain, back pain or extremity pain Skin/Breast: Denies: rash Neuro: Reports: headache(s) Psych: Denies: anxiety or depression Jordi/Lymph: Denies: easy bruising PFSH ED PFSH: Medical History Bilateral renal stones Cervical disc disorder with myelopathy of mid-cervical region Cervical disc disorder with radiculopathy Cystitis cystica Essential tremor History of kidney stones Malabsorption of iron Menorrhagia with regular cycle Menstrual headache Mixed stress and urge urinary incontinence Both urgency and stress incontinence. History of multiple pelvic surgeries including a fistula repair. At first visit for this August 2017 she elected to pursue more conservative options including pelvic floor exercises, bladder drill, pelvic rehabilitation etc. DOMINIC on CPAP Shoulder pain, right Spondylolisthesis of cervical region Surgical History H/O tubal ligation (~2000) History of colonoscopy (03/19/18) History of endometrial ablation (10/27/19) Hysteroscopy with NovaSure endometrial ablation. Dx: Menorrhagia. Performed by Dr. Barber at [facility] in [place], [place] History of esophagogastroduodenoscopy (EGD) (03/19/18) History of hernia repair Developed hernia at ileostomy site. Required 2 different repairs with the last one using mesh. History of reversal of ileostomy History of vaginal surgery (~2010) Recto-vaginal fistula repairs (9 surgeries between 2010-). Includes use of mesh , fat flaps, and diverting ileostomy. S/P extracorporeal shock wave therapy (07/10/17) Dx: Left proximal ureteral stone with high-grade obstruction. Performed by Dr. Eaton at [facility]. S/P extracorporeal shock wave therapy (08/23/17) Dx Left renal stone. Performed by Dr. Eaton at [facility]. Family History Mother , at age 49 Brain aneurysm Father Diabetes Hypertension Other Heart disease Stroke Social History Smoking and tobacco status: former smoker Quit status (tobacco): has quit using tobacco Year quit tobacco: 04/10/2019 Alcohol intake: never Marital status: Current occupation: [employer] History of recent travel: No Female Reproductive History: Date of last menstrual period: 07/08/19 Para: 3 Spontaneous abortions: No Physical Exam Const: COMMON NORMALS: no acute distress, average body habitus and patient oriented x3 HENMT: COMMON NORMALS: normocephalic HEAD & SCALP: normal to inspection and normocephalic FACE & SINUS: normal facial exam Eye: COMMON NORMALS: conjunctivae normal GENERAL EYE: appearance normal, both eyes and all related structures CONJUNCTIVA: Yes conjunctivae normal Neck/C-Spine: COMMON NORMALS: full ROM, supple, no meningeal signs and no JVD Chest: COMMONS NORMALS: normal inspection of the chest Resp: COMMON NORMALS: normal respiratory effort and clear to auscultation bilaterally AUSCULTATION: clear to auscultation bilaterally Cardio: COMMON NORMALS: no JVD, regular rate and regular rhythm RATE: regular rate RHYTHM: regular rhythm GI: COMMON NORMALS: Normal to inspection, nondistended, normoactive bowel sounds present Extremity: COMMON NORMALS: normal to inspection and full ROM Neuro: COMMON NORMALS: patient oriented x3 and CN's II-XII intact bilaterally MENINGEAL SIGNS: Yes no meningeal signs Skin: NARRATIVE SKIN EXAM: Area where the milligrams done looks fine no redness swelling no pressure noted no tenderness Course Vital Signs: Vital signs: Vital Signs Temperature 97.2 F L 03/26/20 13:45 Pulse Rate 75 03/26/20 13:45 Respiratory Rate 14 03/26/20 13:45 Blood Pressure 148/90 03/26/20 13:45 Pulse Oximetry 97 03/26/20 13:45 Discharge Plan Discharge Condition: Good Prescriptions: No Action albuterol sulfate [Proventil HFA] 90 mcg/actuation HFA aerosol inhaler 2 puff INHALATION Q6H PRN (Reason: shortness of breath or wheezing) Qty: 6.7 RF: 6 tizanidine 4 mg capsule 4 mg PO BID PRN (Reason: Spasms) RF: 0 buprenorphine 15 mcg/hour patch weekly 1 patch TRANSDERMA Q7D RF: 0 Aimovig Autoinjector 70 mg/mL auto-injector 70 mg SUBCUT .ONCE MONTHLY RF: 0 omeprazole 40 mg capsule,delayed release(DR/EC) 40 mg PO DAILY Qty: 90 RF: 3 Nurtec ODT 75 mg tablet,disintegrating PO RF: 0 hydrochlorothiazide 25 mg tablet 25 mg PO DAILY Qty: 90 RF: 3 potassium chloride 10 mEq capsule, extended release 10 meq PO DAILY Qty: 90 RF: 3 propranolol 120 mg capsule,extended release 24 hr 120 mg PO DAILY Qty: 90 RF: 3 trazodone 50 mg tablet 50 mg PO .HS Qty: 30 RF: 0 vilazodone 40 mg tablet 40 mg PO DAILY Qty: 90 RF: 3 Rybelsus 7 mg tablet 7 mg PO DAILY Qty: 30 RF: 0 Coding Level of Care Code ED Construction Framer for Chg Fwd Exam Comprehensive
[2020-03-26] MEDS: ketorolac 30 mg/mL INJ IVP (14:42)
[2020-03-26] MEDS: sodium chloride 0.9% 1,000 ML 999 ML IV (14:42)
[2020-03-26] MEDS: ondansetron 2 mg/ML SDV 2 mL 4 MG IVP (14:42)
[2020-03-26 16:14] VITALS: PULSE 86; RESP 16; O2SAT 98
== END 2020-03-26 16:15 | disposition home or self-care (01) ==
PROVIDERS: Emergency Provider Nurse Practitioner Family; PCP Internal Medicine
DX: R51.9 Headache, unspecified (principal); Z87.891 Personal history of nicotine dependence
CPT/HCPCS: 12345; 96361; 96374; 96375; 99283; J1885; J2405; J7030

== ENCOUNTER 2020-04-12 08:05 | Outpatient (CLI) | payer OTHER, SELFPAY ==
--- NOTE | 2020-04-12 08:20 | FL_ITS ---
WS: [id number] Barium swallow and esophagram, upper GI series with air, 04/12/2020 Clinical Data: R10.13 Epigastric pain Comparison: None. Fluoroscopy time: 1.1 minutes. Findings: The patient swallowed the thick and thin barium, and it flowed through the hypopharynx without hesita tion. No stricture, mass, polyp or erosion was seen. The barium passed into the esophagus and there was normal motility throughout. No hiatal hernia, ref lux, stricture, polyp, mass, erosion or ulcer was noted. No reflux was present. The barium passed into the stomach which was well distended. No erosion, polyp, mass or deformity cou ld be seen. No gastric ulcer was present. Barium then passed into the duodenal bulb which distended normally without ulceration. The proximal small bowel is normal. FL/FL upper GI w air* [id number] Impression: Normal esophagram and upper GI series.
== END 2020-04-12 08:06 | disposition home or self-care (01) ==
LOC: RADWPI 08:09
PROVIDERS: PCP Internal Medicine; Visit Provider Surgery
DX: R10.13 Epigastric pain (principal)
CPT/HCPCS: 74246

== ENCOUNTER → 2020-04-21 16:04 | Outpatient (BNVA) | payer OTHER, SELFPAY | PROVIDERS: PCP Internal Medicine; Visit Provider Internal Medicine Critical Care Medicine | DX: Z11.59 Encounter for screening for other viral diseases (principal); Z20.828 Contact with and (suspected) exposure to other viral communicable diseases | CPT/HCPCS: 87635 ==

== ENCOUNTER 2020-04-27 09:55 | Outpatient (CLI) | payer OTHER, SELFPAY ==
--- NOTE | 2020-04-27 13:05 | PFTS_ITS ---
Date of Study:04/27/20 Date of Dictation: 04/27/2020 MECHANICS: Forced vital capacity (FVC) is normal 94% Forced expiratory volume in one second (FEV1) is moderately reduced 70% FEV1/FVC is reduced 61% No significant response to bronchodilator FLOW VOLUME LOOP: Scooping of expiratory limb suggestive of obstructive ventilatory defect . LUNG VOLUMES: TLC normal 118%. RV increased 151% suggestive of air trapping DIFFUSING CAPACITY FOR CARBON MONOXIDE: Normal . INTERPRETATION: The pulmonary function test consistent with moderate obstructive ventilatory defect with normal gas transfer. Please correlate clinically. MTDD
== END 2020-04-27 09:56 | disposition home or self-care (01) ==
LOC: RT 09:58
PROVIDERS: PCP Internal Medicine; Visit Provider Nurse Practitioner Family
DX: J44.9 Chronic obstructive pulmonary disease, unspecified (principal); Z87.891 Personal history of nicotine dependence
CPT/HCPCS: 94060; 94726; 94729; J7611

== ENCOUNTER → 2020-05-03 16:31 | Outpatient (BNVA) | payer OTHER, SELFPAY | PROVIDERS: PCP Internal Medicine; Visit Provider Nurse Practitioner Family | DX: Z20.828 Contact with and (suspected) exposure to other viral communicable diseases (principal) | CPT/HCPCS: 87635 ==

== ENCOUNTER 2020-08-04 12:35 | Outpatient (CLI) | payer OTHER, SELFPAY ==
[2020-08-04 13:15] LABS: Basophils % 0.5 %; Eosinophils # 0.1 10^3/uL (0.0-0.8); Eosinophils % 2.3 %; Hematocrit 38.6 % (37.0-47.0); Hemoglobin 12.1 g/dL (11.5-15.3); Lymphocytes # 2.8 10^3/uL (0.8-4.8); Lymphocytes % 47.5 %; Mean Corpuscular HGB Conc 31.3 g/dL (30.0-36.0); Mean Corpuscular Hemoglobin 23.6 pg (28.0-34.0); Mean Corpuscular Volume 75.4 fL (81-99); Mean Platelet Volume 9.8 fL (7.4-10.4); Monocytes # 0.5 10^3/uL (0.2-0.9); Monocytes % 8.4 %; Neutrophils # 2.44 10^3/uL (1.8-7.7); Nucleated Red Blood Cells % 0 %; Platelet Count 313 10^3/cmm (130-400); Red Blood Count 5.12 10^6/uL (4.1-5.3); Red Cell Distribution Width 15.7 % (12.1-15.1)
[2020-08-04 13:31] LABS: INR 0.94 (0.8-1.2)
[2020-08-04 13:41] LABS: Estmated Average Glucose 114; Hemoglobin A1C 5.6 % (4.0-6.0)
[2020-08-04 13:51] LABS: Calcium 9.5 mg/dL (8.5-10.5); Parathyroid Hormone 34.8 pg/mL (15-65)
[2020-08-04 13:56] LABS: Alanine Aminotransferase 15 U/L (0-33); Albumin Level 4.2 g/dL (3.5-5.2); Anion Gap 12.7 (5-19); Aspartate Amino Transferase 17 U/L (0-32); Blood Urea Nitrogen 12 mg/dL (6-20); Calcium 9.5 mg/dL (8.5-10.5); Carbon Dioxide 26 mmol/L (22-29); Chloride 101 mmol/L (98-107); Ferritin 9 ng/mL (15-150); Glomerular Filtration Rate 108.1 mL/min (90-130); Glucose 101 mg/dL (65-115); Iron 35 ug/dL (37-145); Magnesium 1.7 mg/dL (1.7-2.3); Osmolality Calculated 282 mOsm/kg (285-295); Percent Saturation 7.5 % (20-50); Phosphorus 3.2 mg/dL (2.5-4.5); Potassium 3.7 mmol/L (3.5-5.1); Sodium 136 mmol/L (136-145); Total Bilirubin 0.3 mg/dL (0.15-1.2); Total Iron Binding Capacity 466 mcg/dl; Total Protein 7.2 g/dL (6.6-8.7); Unsaturated Iron Binding 431 ug/dL (112-347)
[2020-08-04 13:57] LABS: Alkaline Phosphatase 46 IU/L (35-105); Chol HDL Ratio 3.65 mg/dL (0.0-4.40); Cholesterol 157 mg/dL (0-200); HDL Cholesterol 43 mg/dL (60-100); LDL Cholesterol Calculated 62 mg/dL (50-129); LDL HDL Ratio 1.44 RATIO (0.00-3.22); Thyroid Stimulating Hormone 1.25 uIU/mL (0.27-4.20); Triglycerides 258 mg/dL (0-150); Vitamin B12 380 pg/mL (232-1245)
== END 2020-08-04 12:36 | disposition home or self-care (01) ==
PROVIDERS: PCP Internal Medicine; Visit Provider Surgery
DX: E66.9 Obesity, unspecified (principal); E66.01 Morbid (severe) obesity due to excess calories
CPT/HCPCS: 36415; 80053; 80061; 82310; 82607; 82728; 82746; 83036; 83540; 83550; 83735; 83970; 84100; 84443; 85025; 85610; 87635

== ENCOUNTER 2020-08-09 10:40 | Inpatient (IN) | payer OTHER, SELFPAY ==
[2020-08-08 08:51] VITALS: BMI 35.2
--- NOTE | 2020-08-08 09:08 | P.ANESASSM_ITS ---
Pre-Anesthetic Assessment Pre-Anesthetic Assessment: Height/Weight: Height 1.63 m Weight 92.986 kg Preop Diagnosis: Menorrhagia with regular cycles, Dysmenorrhea Proposed Procedure: Operation Date: 08/09/20 07:30 Proposed Procedures p Laparoscopic Gastric Sleeve w/ EGD [id number] E66.9(Not Applicable) - Rg Meyers MD s EGD(Not Applicable) - Rg Meyers MD Familial anesthetic complications: None Social: Social History: No alcohol and No tobacco Exam: Pre-Anes Outpt Exam: alert, oriented x 3, clear to auscultation bilaterally and regular rate & rhythm Airway: Cervical ROM: WNL MP: 2 Dentition: Other (missing) Pulmonary: Pulmonary: COPD CV/HEM: CV/HEM: HTN GI: GI: GERD Metabolic: Metabolic: DM (pre-DM) and Morbid obesity Neuropsych: Neuropsych: MONROE Anesthetic Plan: ASA status: 2 Risk of > 500 ml blood loss (7ml/kg in children): No PFSH Anesthesia PFSH: Medical History (Updated 07/14/20 @ 16:32 by Moira Bernal LPN) Bilateral renal stones Cervical disc disorder with myelopathy of mid-cervical region Cervical disc disorder with radiculopathy Cystitis cystica Essential tremor History of kidney stones Malabsorption of iron Menorrhagia with regular cycle Menstrual headache Mixed stress and urge urinary incontinence Both urgency and stress incontinence. History of multiple pelvic surgeries including a fistula repair. At first visit for this August 2017 she elected to pursue more conservative options including pelvic floor exercises, bladder drill, pelvic rehabilitation etc. DOMINIC on CPAP Shoulder pain, right Spondylolisthesis of cervical region Surgical History H/O tubal ligation (~2000) History of colonoscopy (03/19/18) History of endometrial ablation (10/27/19) Hysteroscopy with NovaSure endometrial ablation. Dx: Menorrhagia. Performed by Dr. Barber at [facility] in [place], [place] History of esophagogastroduodenoscopy (EGD) (03/19/18) History of hernia repair Developed hernia at ileostomy site. Required 2 different repairs with the last one using mesh. History of reversal of ileostomy History of vaginal surgery (~2010) Recto-vaginal fistula repairs (9 surgeries between 2010-). Includes use of mesh , fat flaps, and diverting ileostomy. S/P extracorporeal shock wave therapy (07/10/17) Dx: Left proximal ureteral stone with high-grade obstruction. Performed by Dr. Eaton at [facility]. S/P extracorporeal shock wave therapy (08/23/17) Dx Left renal stone. Performed by Dr. Eaton at [facility]. Family History Mother , at age 49 Brain aneurysm Father Diabetes Hypertension Other Heart disease Stroke Social History Smoking and tobacco status: former smoker Quit status (tobacco): has quit using tobacco Year quit tobacco: 04/10/2019 Alcohol intake: never Marital status: Current occupation: [employer] History of recent travel: No Female Reproductive History: Date of last menstrual period: 07/08/19 Para: 3 Spontaneous abortions: No Data Anesthesia Cardiac Studies: No Data to Display
--- NOTE | 2020-08-08 14:06 | SUR.PREOP ---
08/08/20 [id number] Patient here for preop. No orders in computer, office notified.
[2020-08-09] VITALS (28 sets, daily range): BP systolic 120–159; BP diastolic 66–99; PULSE 56–83; RESP 12–19; TEMP 36.2–37; O2SAT 91–100
[2020-08-09] MEDS: sodium chloride 0.9% 1,000 ML 999 ML IV (06:15)
[2020-08-09] MEDS: scopolamine 1.5 Patch 1 PATCH TRANSDERMA (06:23)
--- NOTE | 2020-08-09 06:37 | P.ANESUD_ITS ---
Pre-Anesthetic Update Pre-Anesthetic Assessment: Date of Surgery/Procedure: 08/09/20 Preop Ana Paula gnosis: Menorrhagia with regular cycles, Dysmenorrhea Proposed Procedure: Operation Date: 08/09/20 07:30 Proposed Procedures p Laparoscopic Gastric Sleeve w/ EGD [id number] E66.9(Not Applicable) - Rg Meyers MD s EGD(Not Applicable) - Rg Meyers MD Any changes to Pre-Anesthetic Assessment?: No Last Intake: Intake Last Liquid Date 08/08/20 Last Liquid Time 20:00 Last Solid Date 08/06/20 Last Solid Time 20:00 Vitals: Temperature 98.4 F 08/09/20 05:52 Temperature Source Temporal Artery S can 08/09/20 05:52 Pulse Rate 73 08/09/20 05:52 Pulse Rhythm 08/09/20 05:52 Pulse Strength 3+ Normal 08/09/20 05:52 Respiratory Rate 18 08/09/20 05:52 Blood Pressure 120/66 08/09/20 05:52 Blood Pressure Breann n 84 08/09/20 05:52 Pulse Oximetry 95 08/09/20 05:52 Oxygen Delivery Me thod 08/09/20 05:52 Exam: Pre-Anes Outpt Exam: alert, oriented x 3, clear to auscultation bilaterally and regular rate & rhythm Other Pertinent Information: Other Pertinent Information: Took propanolol this morning Cardiac Studies: No Data to Display
--- NOTE | 2020-08-09 06:44 | W.PM.OPSUD ---
Surgery/Procedure H&P Update DATE OF PROCEDURE: August 09, 2020 DATE H&P PERFORMED: 08/08/20 H&P UPDATE INFORMATION: I have reviewed H&P completed within last 30 days, I have examined patient prior to procedure and No changes to prior documentation (Except that I did encourage the patient to bring her CPAP machine if needed postoperatively) PREOP DIAGNOSIS: Obesity PRIMARY INDICATION FOR PROCEDURE: The same PLANNED PROCEDURE: Operation Date: 08/09/20 07:30 Proposed Procedures p Laparoscopic Gastric Sleeve w/ EGD [id number] E66.9(Not Applicable) - Rg Meyers MD s EGD(Not Applicable) - Rg Meyers MD
[2020-08-09] MEDS: heparin 5,000 unit/mL INJ 1 mL 5000 UNIT SUBCUT (06:45)
[2020-08-09] MEDS: midazolam 1 mg/mL INJ 2 mL 2 MG IVP (06:48)
[2020-08-09] MEDS: ondansetron 2 mg/ML SDV 2 mL 4 MG IVP ×5 (06:49→20:53)
[2020-08-09] MEDS: sodium chloride 0.9% 1,000 ML 30 ML IV (07:36)
[2020-08-09] MEDS: clindamycin 900 MG/50 ML PREMIX 100 MG IV (07:41)
--- NOTE | 2020-08-09 08:34 | SUR.OPER ---
updated of surgical status.
--- NOTE | 2020-08-09 10:02 | SUR.OPER ---
updated of surgical status
--- NOTE | 2020-08-09 10:30 | P.OP_ITS ---
Operative Report Date of procedure: August 09, 2020 Pre-op Diagnosis: Obesity Post-op diagnosis: same Post-op Findings: Intra-abdominal adhesions towards the left upper quadrant and right lower quadrant likely status post ileostomy takedown Presence of light fowler adherent sheath on top of the right lobe of the liver Without obvious masses. Procedure Done: Laparoscopic vertical sleeve gastrectomy with intraoperative esophagogastroscopy Right lobe liver biopsy Implants: Pieces of Surgicel applied towards the gastroesophageal junction hilum of the spleen and the staple line Specimens removed/disposition: Subtotal gastrectomy status post laparoscopic sleeve gastrectomy sutures marked proximal Capsule biopsy of the right lobe of the liver sent for permanent Surgeon: Rg Meyers Youth Development Specialist: Surgical techalfie Chapin and [place] Circulating nurses Maria R and Remedios Stokes Anesthesia: General (DENVER Carmichael) Estimated blood loss (mL): 25 IV fluids (mL): 1,000 Urine output (mL): 100 Complications: No immediate complications Condition: stable Disposition: floor Brief History: Pleasant 45 years old female patient with history of obesity and associated multiple medical comorbidities. Met the appropriate medical necessity for weight loss surgery in the form of laparoscopic vertical sleeve gastrectomy.Full H&P and Detailed informed consent per chart. Procedure: Procedure: Patient was identified in holding area , appropriate pharmacologic DVT prophylaxis was given and preoperative IV fluid hydration, patient was then taken to the operating room where the patient was placed in supine position, intubated by anesthesia prophylactic antibiotics were given per protocol,Time-out was done verifying the patient's name/date of /planned procedure and destination after the procedure, all were in agreement.SCDs confirmed to be functioning, and beta doreen protocol was confirmed. A Love catheter was inserted by the circulating nurse revealing clear urine. A foot board was applied to secure the patient while the patient is placed in reversed Trendelenburg, all pressure points were padded, and the patient was adeola ropriately secured to the table, anesthesia was asked to rotate the table back and forth to verify that the patient is appropriately secured, and that was the case. The abdomen was prepped and draped under the usual sterile technique. A 1 cm transverse incision was made with a 15 blade scalpel approximately 15 cm below the xiphoid process and 3 cm left of the midline.A 12 mm optical trocar port was placed under direct vision into the peritoneal cavity without intial evidence of injury to peritoneal structures upon entry. The peritoneal cavity was insufflated with carbon dioxide gas up to 15 mmHg pressure.A 45? angle laparoscopy was placed through the port into the peritoneal cavity there was no significant blood, fluid, or evidence of intra-abdominal injury under direct visualization, There was evidence of adhesions towards the left upper quadrant as well as towards the right side of the abdomen, I decided at this point to start by placing the 5 mm long trochars as follows: A 5 mm trocar port was placed in the left lateral flank And under direct visualization using the harmonic scalpel and sharp dissection. I started taking adhesions down till I did have a clear spot to place an additional 5 mm trocar that was inserted midway between the left lateral flank trocar and the initial 12 mm trocar.And more adhesions were taken down. Following that a 12 mm trocar port was placed in the right epigastric region and a fourth 5 mm trocar port was placed in the mid epigastric region more caudad than and medial to the previous port.Avoiding the right-sided adhesions after taking some down under direct visualization prior to insertion of the right- sided trochars. I lifted the omentum up to make sure there were no injuries encountered from the initial trocar insertion, the underlying transverse colon and small bowel viscera were normal. A subxiphoid stab incision was made and dissection into the peritoneum with 5 mm obturator.A grasping laparoscopic clamp was inserted through here and clamped to the right danielle of the diaphragm to elevate The liver for the entirety of the case.All trocars inserted were long arc trocars due to the thick layer of subcutaneous tissue that the patient has. Patient was then placed in the reversed Trendelenburg Following this, the greater curvature of the stomach was freed from the omentum using the harmonic scalpel. This division included the short gastric vessels proximally. This dissection was carried from approximately 4 cm-6 cm proximal to the pylorus and extending all the way up to the angle of Hiss.There was some oozing towards the Proximal short gastrics and a 5 mm clip industrial ecology technician was applied. During this process the posterior aspect of the stomach was mobilized from the underlying peritoneum and the posterior aspect of the stomach was well exposed. With the greater curvature of the stomach exposed from within 4-6 cm of the pylorus and extending to the angle of Hiss, which also included the posterior stomach, a 40 [place] standard template passed under direct vision down the esophagus, stomach, and into the first part of the duodenum by the anesthesia provider and under direct guidance and visualization by me,via the laparoscopy. Using the template 40 [place] aligned along the lesser curvature of the stomach and all the way to the first part of the Duodenum,the 40 [place] Bougie was used as a template the laparoscopic vertical gastric sleeve was performed starting from a point about 5 cm from the pylorus along the greater curvature.Using the Ubidyne Laparoscopic YAMILETH linear cutting stapler with Ubidyne Endopath enforcement, a series of kulwinder were used to transect the stomach in a vertical fashion along the left side of the template. Through the entire division of the stomach using the staplers,the template was always checked to be in good place and well aligned to the lesser curvature while dividing the stomach. This was carried all the way to the angle of Hiss.Green loads were used for the distal two thirds of the stomach and Gold loads were used for the more proximal part of the stomach and the last load was blue load with reinforcement. The staple line along the remaining tubularized stomach was tested for leaks and bleeding under direct vision as the 40 [place] template was exchanged (and there was no evidence of blood on the tip of the template) by a standard diagnostic EGD via the mouth by my me after I scrubbed out,CO2 insufflation was achieved and the staple line submerged under saline ,meanwhile a clamp was applied distally onto the end of the tubularized stomach to allow insufflation test for leak. There was no evidence of leak .There was adequate hemostasis along the staple line.EGD was taken out at this point after deflation of the tubularized stomach. I scrubbed back in and The transected partial stomach, which included the greater curvature, was removed from the peritoneum through the first 12 mm trocar site, and was sent for permanent pathology. Prior to closure of the fascia. A final look laparoscopy identified no injuries, there was mild oozing at the fat pad at the GE junction and 5 m clips were applied And along the staple line of the conduit.Also elected to place pieces of Surgicel towards the splenic hilum as well as along the staple line to secure appropriate hemostasis, there was no active bleeding. I noticed onto the surface of the right lobe of the liver light grayish capsule towards the gallbladder and Overlying the lateral two thirds of the liver and I elected to peel off some of the sheath and send it for permanent pathology. He mostasis was applied. An interrupted #1 PDS suture on a granny needle suture passer was used to close the right epigastric and the other 12 mm trocar left of the midline fascial defects under direct visualization.A final look laparoscopy showed no injuries or bleeding.The other trocars were removed under direct vision and no evidence of bleeding was identified. The pneumoperitoneum was decompressed.All skin incisions were irrigated with saline, then closed with kulwinder, followed by application of sterile dressings.The patient was extubated and taken to the recovery room with normal vital signs. All counts of instruments,sponges and needles were completed at the end of the procedure I was present for the whole entire procedure
[2020-08-09] MEDS: fentaNYL 50 mcg/mL INJ 2mL IVP ×2 (10:53→10:58)
[2020-08-09] MEDS: metoclopramide 5 mg/mL SDV 2 mL 10 MG IVP (11:16)
[2020-08-09 12:15] LABS: Glucose Point of Care 129 mg/dL (70-110)
[2020-08-09] MEDS: HYDROmorphone 1 mg/mL INJ 1 mL IVP ×5 (12:23→23:02)
[2020-08-09] MEDS: promethazine 25 mg/mL SDV 1 mL 12.5 MG IM (12:24)
[2020-08-09] MEDS: sodium chloride 0.9% 1,000 ML 125 ML IV ×2 (15:03→22:57)
[2020-08-09] MEDS: albuterol 8 gm MDI 2 PUFF INHALATION (15:31)
[2020-08-09 16:49] LABS: Glucose Point of Care 121 mg/dL (70-110)
[2020-08-09] MEDS: metoclopramide 5 mg/mL SDV 2 mL IVP (17:19)
--- NOTE | 2020-08-09 18:39 | PC.NURSE ---
ambulation Pt ambulated over 200 ft around unit.
[2020-08-09 21:05] LABS: Glucose Point of Care 122 mg/dL (70-110)
--- NOTE | 2020-08-09 21:31 | ANE.PACU2 ---
Inpatient post-anesthesia follow up: Airway intact: Yes Vital signs: Temperature 98.5 F Pulse Rate 64 Respiratory Rate 18 Blood Pressure 145/85 Pulse Oximetry 96 Oxygen Delivery Me thod Room Air Oxygen Flow Rate 8 Fraction of Inspir ed Oxygen Hydration adequate: Yes Nausea and vomiting: No Pain level: 3 Mental status: Baseline
[2020-08-10] VITALS (18 sets, daily range): BP systolic 119–159; BP diastolic 77–95; PULSE 67–86; RESP 14–18; TEMP 36.6–37.4; O2SAT 95–97
[2020-08-10] MEDS: HYDROmorphone 1 mg/mL INJ 1 mL IVP ×4 (01:54→10:06)
[2020-08-10 02:18] LABS: Hematocrit 37.8 % (37.0-47.0); Hemoglobin 11.7 g/dL (11.5-15.3)
[2020-08-10 02:33] LABS: Anion Gap 15.2 (5-19); Blood Urea Nitrogen 3 mg/dL (6-20); Calcium 7.3 mg/dL (8.5-10.5); Carbon Dioxide 21 mmol/L (22-29); Chloride 106 mmol/L (98-107); Glomerular Filtration Rate 172.6 mL/min (90-130); Glucose 110 mg/dL (65-115); Osmolality Calculated 285 mOsm/kg (285-295); Potassium 3.2 mmol/L (3.5-5.1); Sodium 139 mmol/L (136-145)
[2020-08-10] MEDS: ondansetron 2 mg/ML SDV 2 mL 4 MG IVP ×2 (04:29→16:00)
--- NOTE | 2020-08-10 06:11 | P.PN_ITS ---
Subjective Subjective: Interval history: Patient overall doing well, feels sore, narcotics and ice packs seem to help. She has been ambulatory and had good urine output overnight. Stable H&H and potassium of 3.2 Otherwise no acute events overnight Vitals/I&O/Wt Last Vital Signs Temp 97.9 F 08/10/20 04:00 Pulse 78 08/10/20 04:00 Resp 18 08/10/20 04:29 BP 142/87 08/10/20 04:00 Pulse Ox 97 08/10/20 04:00 08/09/20 08/09/20 08/10/20 14:59 22:59 06:59 Intake Total 2550 / 2550 1050 / 3600 100 / 3700 Output Total 810 / 810 800 / 1610 1150 / 2760 Balance 1740 / 1740 250 / 1990 -1050 / 940 Weight last 48 hrs Weight 205 lb Weight 205 lb Physical Exam Narrative: EXAM NARRATIVE: Patient is conscious alert oriented X3 BMI 35.2 Head and neck examination PERRLA no masses no cervical lymphadenopathy no jaundice Cardiac examination audible S1-S2 no murmurs no gallops no arrhythmias Chest is clear bilateral,abscence of Rhonchi or wheezes,no surgical emphysema Abdomen nontender except at the incision sites particularly the right upper quadrant incision nondistended soft no organomegaly guarding or rigidity/no signs of peritonitis. Love catheter in place with clear urine Extremities no cyanosis no clubbing no edema Urinary Catheter Management^: Love: Cath Placed During This Visit: yes Reason for Continuing Indwelling Catheter: Required Immobilization for Trauma or Surgery or Anesthesia Urinary Catheter Date of Insertion: 08/09/20 Urinary Catheter Time of Insertion: 08:10 Data : 08/10/20 02:06 08/10/20 02:06 A&P Assessment and plan (1) S/P laparoscopic sleeve gastrectomy: Postoperative laparoscopic sleeve gastrectomy 08/09/2020 DC Love catheter Follow-up on upper GI studies once cleared we will start the patient on clear liquid diet Encourage ambulation Replacement of potassium with 40 mEq with lidocaine Incentive spirometer every hour Resume heparin subcu Assurance and education All questions have been answered and all concerns have been addressed to patient's satisfaction. Status: Acute Attestations Medical Necessity Statement*: Patient requiring inpatient hospitalization for medical management of diabetes, replacement of electrolytes parenterally and perioperative care of laparoscopic vertical sleeve gastrectomy. Awaiting upper GI study. Time Spent in Patient Care: (>than 50% of time spent in counselling and/or direct pt care on unit) . Coding Level of Care Code Acute Bundle Packer for Chg Fwd Diagnoses S/P laparoscopic sleeve gastrectomy Z98.84
[2020-08-10] MEDS: lidocaine 1% 5 ML in potassium chloride premix 100 ML 25 ML IV (06:24)
[2020-08-10] MEDS: heparin 5,000 unit/mL INJ 1 mL 5000 UNIT SUBCUT ×3 (06:24→20:49)
[2020-08-10] MEDS: sodium chloride 0.9% 1,000 ML 125 ML IV ×2 (06:25→15:48)
[2020-08-10 06:42] LABS: Glucose Point of Care 122 mg/dL (70-110)
--- NOTE | 2020-08-10 08:00 | FL_ITS ---
WS: [id number] Upper GI series, 08/10/2020 Clinical Data: Status Post Gastric Sleeve Comparison: None. Fluoroscopy time: 1.1 minutes. Findings: The patient swallowed the barium , and it flowed normally through the esophagus with no hiatal hernia , mass, polyp, erosion or ulceration. The stomach showed no evidence of any extravasation. Surgical c lips adjacent to the greater curvature of the stomach from gastric sleeve procedure were seen. FL/FL upper GI series [id number] Impression: Satisfactory upper GI series following gastric sleeve procedure with no evidenc e of any obstruction or extravasation.
[2020-08-10] MEDS: diatrizoate meglumine 120 mL Sol PO (08:57)
[2020-08-10] MEDS: metoclopramide 5 mg/mL SDV 2 mL IVP (10:12)
[2020-08-10 10:41] LABS: Glucose Point of Care 102 mg/dL (70-110)
[2020-08-10] MEDS: oxyCODONE-APAP 5-325 mg Tablet 1 TAB PO ×3 (12:17→23:53)
--- NOTE | 2020-08-10 15:45 | PC.NUTR ---
NUTR POST BARIATRIC CONSULT: Pt reported in pain. Pt reported having lunch. Taking sips of various items. Reported 2 weeks prior to surgery on liquid pro diet. Losing 7-10 lbs. Talked about fluid goals of 64 oz, 65 grams PRO. Pt reported no other needs at this time.
[2020-08-10 16:40] LABS: Glucose Point of Care 100 mg/dL (70-110)
[2020-08-10] MEDS: famotidine 20 mg/2 mL INJ IVP (18:02)
[2020-08-10] MEDS: propranolol 40 mg Tablet 160 MG PO (18:04)
--- NOTE | 2020-08-10 18:30 | PC.NURSE ---
SHIFT SUMMARY PATIENT HAS DONE WELL TODAY. PATIENT HAD COMPLAINTS OF PAIN THIS MORNING, BUT HAS IMPROVED THROUGHOUT THE DAY. SURGICAL SITES ARE C/D/I. PATIENT HAS AMBULATED MULTIPLE TIMES THROUGHOUT THE DAY IN THE HALLWAY. EXCELLENT URINE OUTPUT. TOLERATING CLEAR LIQUIDS.
[2020-08-10] MEDS: trazodone 50 mg Tablet PO (20:49)
[2020-08-10 21:10] LABS: Glucose Point of Care 129 mg/dL (70-110)
[2020-08-10] MEDS: promethazine 25 mg/mL SDV 1 mL 12.5 MG IM (23:53)
[2020-08-11] VITALS (7 sets, daily range): BP systolic 134–150; BP diastolic 83–85; PULSE 72–79; RESP 16–18; TEMP 37–37.5; O2SAT 95–97
[2020-08-11 02:33] LABS: Hematocrit 32.8 % (37.0-47.0); Hemoglobin 10.2 g/dL (11.5-15.3)
[2020-08-11 02:48] LABS: Anion Gap 12.2 (5-19); Blood Urea Nitrogen 2 mg/dL (6-20); Calcium 7.7 mg/dL (8.5-10.5); Carbon Dioxide 23 mmol/L (22-29); Chloride 107 mmol/L (98-107); Glomerular Filtration Rate 172.6 mL/min (90-130); Glucose 112 mg/dL (65-115); Osmolality Calculated 285 mOsm/kg (285-295); Potassium 3.2 mmol/L (3.5-5.1); Sodium 139 mmol/L (136-145)
[2020-08-11] MEDS: famotidine 20 mg/2 mL INJ IVP (05:32)
[2020-08-11] MEDS: heparin 5,000 unit/mL INJ 1 mL 5000 UNIT SUBCUT (05:32)
--- NOTE | 2020-08-11 05:40 | PM.PN ---
Subjective Subjective: Interval history: Patient overall feels and better pain control well. Continues to have good urine output and stable vital signs. Tolerating p.o. intake. Patient continues to be ambulatory. Morning labs showed slight drift in H&H and potassium of 3.2. Patient passing gas Upper GI study was done yesterday and showed The patient swallowed the barium , and it flowed normally through the esophagus with no hiatal hernia, mass, polyp, erosion or ulceration. The stomach showed no evidence of any extravasation. Surgical clips adjacent to the greater curvature of the stomach from gastric sleeve procedure were seen. FL/FL upper GI series [id number] Impression: Satisfactory upper GI series following gastric sleeve procedure with no evidence of any obstruction or extravasation. Medications: Reviewed: Yes Vitals/I&O/Wt Last Vital Signs Temp 98.6 F 08/11/20 04:00 Pulse 74 08/11/20 05:37 Resp 16 08/11/20 04:00 BP 150/84 08/11/20 04:00 Pulse Ox 97 08/11/20 04:00 08/10/20 08/10/20 08/11/20 14:59 22:59 06:59 Intake Total 1345 / 1345 1220 / 2565 Output Total 200 / 200 500 / 700 Balance 1145 / 1145 720 / 1865 Physical Exam Narrative: EXAM NARRATIVE: Patient is conscious alert oriented X3 BMI 35.2 Head and neck examination PERRLA no masses no cervical lymphadenopathy no jaundice Cardiac examination audible S1-S2 no murmurs no gallops no arrhythmias Chest is clear bilateral,abscence of Rhonchi or wheezes,no surgical emphysema Abdomen nontender, incisions are clean dry and intact and skin kulwinder in place. Nondistended soft no organomegaly guarding or rigidity/no signs of peritonitis. Extremities no cyanosis no clubbing no edema Urinary Catheter Management^: Love: Cath Placed During This Visit: yes Reason for Continuing Indwelling Catheter: Required Immobilization for Trauma or Surgery or Anesthesia Urinary Catheter Date of Insertion: 08/09/20 Urinary Catheter Time of Insertion: 08:10 Data : 08/11/20 02:01 08/11/20 02:01 A&P Assessment and plan (1) S/P laparoscopic sleeve gastrectomy: Patient status post laparoscopic sleeve gastrectomy 08/09/2020 We will DC IV fluids and will replace potassium with 40 mEq KCl with lidocaine Resume home medications Plan to discharge home today Incentive spirometer every hour while awake Abdominal binder for comfort. Assurance and education All questions have been answered and all concerns have been addressed to patient's satisfaction. Status: Resolved Attestations Medical Necessity Statement*: Patient required inpatient hospitalization for medical monitoring of her hyperglycemia as well as perioperative care with laparoscopic vertical sleeve gastrectomy and resumption of p.o. intake .we will plan to discharge home today. Time Spent in Patient Care: 16 - 35 minutes (>than 50% of time spent in counselling and/or direct pt care on unit). Coding Level of Care Code Acute Imaging Analyst for Chg Fwd Diagnoses S/P laparoscopic sleeve gastrectomy Z98.84
--- NOTE | 2020-08-11 05:59 | P.DS_ITS ---
Discharge Providers Date of Admission: 08/09/20 10:41 Date of Discharge: August 11, 2020 Attending Provider at Admission: Rg Meyers MD Attending Provider at Discharge: Rg Meyers MD Primary Care Provider: Riccardo Saba MD Diagnoses at Discharge Discharge Diagnosis (1) S/P laparoscopic sleeve gastrectomy: Status: Resolved Permanent problem details: Patient met the appropriate criteria for safe discharge home. Reason for Visit Reason for Visit: [facility] Hospital Course Hospital Course Patient undergone uneventful laparoscopic vertical sleeve gastrectomy and overall did well, continues to have stable vital signs and good urine output, initially pain was challenging to control yet with a combination of IV Dilaudid and IV Tylenol patient was feeling better.Patient was on mechanical and pharmac ologic DVT prophylaxis. Upper GI study was done and cleared and there after patient was started on p.o. clear liquid diet and tolerated that well and associated nausea was under control. Patient continued to have stable vital signs and passing gas. Nutrition consultation was on board. Today patient meets the appropriate safe criteria for discharge home. During her hospital course potassium was replaced as patient is well-known by history of chronic hypokalemia and she has been on HCTZ. Home medications were resumed. Physical Exam Narrative: EXAM NARRATIVE: Patient is conscious alert oriented X3 BMI 35.2 Head and neck examination PERRLA no masses no cervical lymphadenopathy no jaundice Cardiac examination audible S1-S2 no murmurs no gallops no arrhythmias Chest is clear bilateral,abscence of Rhonchi or wheezes,no surgical emphysema Abdomen nontender, incisions are clean dry and intact and skin kulwinder in place. Nondistended soft no organomegaly guarding or rigidity/no signs of peritonitis. Extremities no cyanosis no clubbing no edema Urinary Catheter Management^: Love: Cath Placed During This Visit: yes Reason for Continuing Indwelling Catheter: Required Immobilization for Trauma or Surgery or Anesthesia Urinary Catheter Date of Insertion: 08/09/20 Urinary Catheter Time of Insertion: 08:10 Discharge Data Data Completed and Pending: Completed Studies During Hospitalization Category Date Time Status [place] upper GI jason s [id number] Routine Exams 08/10/20 08:00 Completed Pathology: Surgic al [PTH] Routine Pth 08/09/20 10:43 Completed Pending at discharge Category Date Time Status ES surgery / GI i mages Routine Exams 08/09/20 06:46 Taken Labs from last 24 hours 08/11/20 08/11/20 08/10/20 02:01 02:01 20:34 Hgb 10.2 L Hct 32.8 L Sodium 139 Potassium 3.2 L Chloride 107 Carbon Dioxide 23 Anion Gap 12.2 BUN 2 L Creatinine 0.4 L GFR Calculation 172.6 H Glucose 112 POC Glucose 129 H Calculated Osmolal ity 285 Calcium 7.7 L 08/10/20 08/10/20 08/10/20 16:36 10:35 06:35 Hgb Hct Sodium Potassium Chloride Carbon Dioxide Anion Gap BUN Creatinine GFR Calculation Glucose POC Glucose 100 102 122 H Calculated Osmolal ity Calcium Addt'l Data from Hospital Stay: Upper GI study was done and showed no evidence of extravasation or leak. Vitals: Last Vital Signs Temp 98.6 F 08/11/20 04:00 Pulse 74 08/11/20 05:37 Resp 16 08/11/20 04:00 BP 150/84 08/11/20 04:00 Pulse Ox 97 08/11/20 04:00 Discharge Plan Discharge Patient Disposition: Home Condition: Stable Prescriptions: New Percocet 5-325 mg tablet 1 tab PO Q6H PRN (Reason: pain) Qty: 28 RF: 0 Transderm-Scop 1 mg over 3 days patch 3 day 1 patch transdermal Q3D PRN (Reason: nausea and vomiting) Qty: 4 RF: 1 Zofran 4 mg tablet 4 mg PO Q6H PRN (Reason: nausea and vomiting) Qty: 30 RF: 1 Continued albuterol sulfate [Proventil HFA] 90 mcg/actuation HFA aerosol inhaler 2 puff INHALATION Q6H PRN (Reason: shortness of breath or wheezing) Qty: 6.7 RF: 6 tizanidine 4 mg capsule See Rx Instructions .ROUTE .COMPLEX PRN (Reason: Spasms) RF: 0 Aimovig Autoinjector 70 mg/mL auto-injector 70 mg SUBCUT Q30D RF: 0 doxycycline hyclate 100 mg tablet See Rx Instructions .ROUTE .COMPLEX RF: 0 levocetirizine [Xyzal] 5 mg Tablet 5 mg PO BEDTIME RF: 0 Ubrelvy 100 mg Tablet 100 mg PO PRN RF: 0 propranolol 160 mg capsule,extended release 24 hr 160 mg PO DAILY@07 RF: 0 potassium chloride 10 mEq capsule, extended release 10 meq PO DAILY@07 RF: 0 trazodone 50 mg tablet 50 mg PO BEDTIME RF: 0 omeprazole 40 mg capsule,delayed release(DR/EC) 40 mg PO DAILY@07 RF: 0 hydrochlorothiazide 25 mg tablet 25 mg PO DAILY@07 RF: 0 vilazodone 40 mg tablet 40 mg PO DAILY@07 RF: 0 Rybelsus 7 mg tablet 7 mg PO DAILY@07 RF: 0 No Action (DME) blood sugar diagnostic Strip See Rx Instructions .ROUTE .MEDSUPPLY Qty: 100 RF: 0 (DME) lancets Misc See Rx Instructions .ROUTE .MEDSUPPLY Qty: 100 RF: 0 (DME) glucometer See Rx Instructions .Route .MEDSUPPLY Qty: 1 RF: 0 Discharge Orders: Discharge Order (Routine); Ordered 08/11/20 Ordered By: Rg Meyers Referrals: Rg Meyers MD [Physician] - 08/18/20 8:30 am (You have an appointment with Dr. Newsome on August 18 at 8:30.) Discharge Diet: As Directed Discharge Activity: Limit activity as instructed Patient Instructions: Scopolamine (Absorbed through the skin), Oxycodone/Acetaminophen (By mouth), Ondansetron (By mouth), Laparoscopic Gastrectomy (DC), Opioid Safety Activity Restrictions/Additional Instructions: 1. Patient can shower after 48 hours from surgery 2. Remove Dermabond 7 to 10 days after surgery, if there is a secondary dressing can take down after 48 hours. 3. Up and walking as tolerated 4. Do not lift more than 5 pounds first 2 weeks after surgery and not more than 25 pounds 6 to 8 weeks after surgery. 5. Do not operate heavy machinery or drive while using pain medications. 6.Contact the office or return to the ER for worsening nausea vomiting fevers or chills, or noticing any redness around incision sites or discharge. Discharge Attestations Time Spent in Discharge Care*: less than 30 min Specific Discharge Activities: educating patient and educating and/or supporting family/caregiver Status at Discharge: Cognitive status at discharge: cognitively intact , Behavioral status at discharge: cooperative , Functional status at discharge: independent ambulation Overall status at discharge: patient is progressing back to baseline Quality Metrics Clinical Quality Measures During this hospital stay, did patient experience: None Coding Level of Care Code Acute Pattern Shop Supervisor for Chg Fwd Diagnoses S/P laparoscopic sleeve gastrectomy Z98.84
[2020-08-11] MEDS: lidocaine 1% 5 ML in potassium chloride premix 100 ML 25 ML IV (06:06)
[2020-08-11] MEDS: oxyCODONE-APAP 5-325 mg Tablet 1 TAB PO (06:09)
[2020-08-11 06:55] LABS: Glucose Point of Care 122 mg/dL (70-110)
[2020-08-11] MEDS: ondansetron 2 mg/ML SDV 2 mL 4 MG IVP (07:14)
[2020-08-11] MEDS: propranolol 40 mg Tablet 160 MG PO (08:27)
== END 2020-08-11 10:54 | disposition home or self-care (01) | DRG 620 ==
LOC: MEDSURG 10:41
PROVIDERS: Admitting Provider Surgery; PCP Internal Medicine; Visit Provider Surgery
PROC: 0DB64Z3 Excision of Stomach, Percutaneous Endoscopic Approach, Vertical (ICD-10-PCS; CPT 43775; principal; 2020-08-09 07:30)
PROC: 0DJ08ZZ Inspection of Upper Intestinal Tract, Via Natural or Artificial Opening Endoscopic (ICD-10-PCS; CPT 43235; 2020-08-09 07:30)
DX: E66.9 Obesity, unspecified (principal); M50.020 Cervical disc disorder with myelopathy, mid-cervical region, unspecified level; Z68.35 Body mass index [BMI] 35.0-35.9, adult; G47.33 Obstructive sleep apnea (adult) (pediatric); J44.9 Chronic obstructive pulmonary disease, unspecified; I10 Essential (primary) hypertension; K76.0 Fatty (change of) liver, not elsewhere classified; Z87.442 Personal history of urinary calculi; M50.120 Mid-cervical disc disorder, unspecified level; N30.80 Other cystitis without hematuria; F32.9 Major depressive disorder, single episode, unspecified; G25.0 Essential tremor; Z79.51 Long term (current) use of inhaled steroids; N39.46 Mixed incontinence; M43.12 Spondylolisthesis, cervical region; Z87.891 Personal history of nicotine dependence; K76.9 Liver disease, unspecified; Z79.891 Long term (current) use of opiate analgesic; Z79.4 Long term (current) use of insulin; E87.6 Hypokalemia; E11.65 Type 2 diabetes mellitus with hyperglycemia
CPT/HCPCS: 36415; 36416; 51702; 74240; 80048; 82962; 85014; 85018; 88307; 88309; 94640; 96365; 96372; 96374; 96375; C9290; J0131; J1170; J1644; J2250; J2405; J2550; J2704; J2710; J2765; J3010; J3480; J3490; J3535; J7030; Q9963

== ENCOUNTER 2020-10-31 14:55 | Outpatient (CLI) | payer OTHER, SELFPAY ==
[2020-10-31 15:38] LABS: Basophils % 0.7 %; Eosinophils # 0.4 10^3/uL (0.0-0.8); Eosinophils % 6.5 %; Hematocrit 40.5 % (37.0-47.0); Hemoglobin 12.8 g/dL (11.5-15.3); Lymphocytes # 2.8 10^3/uL (0.8-4.8); Lymphocytes % 49.1 %; Mean Corpuscular HGB Conc 31.6 g/dL (30.0-36.0); Mean Corpuscular Hemoglobin 25.2 pg (28.0-34.0); Mean Corpuscular Volume 79.7 fL (81-99); Mean Platelet Volume 10.7 fL (7.4-10.4); Monocytes # 0.5 10^3/uL (0.2-0.9); Monocytes % 8.6 %; Neutrophils # 2.01 10^3/uL (1.8-7.7); Neutrophils % 35.1 %; Nucleated Red Blood Cells % 0 %; Platelet Count 243 10^3/cmm (130-400); Red Blood Count 5.08 10^6/uL (4.1-5.3); Red Cell Distribution Width 16.3 % (12.1-15.1); White Blood Count 5.7 10^3/uL (4.0-10.0)
[2020-10-31 15:53] LABS: INR 1.06 (0.8-1.2)
[2020-10-31 16:03] LABS: Cholesterol 130 mg/dL (0-200); Ferritin 12 ng/mL (15-150); HDL Cholesterol 52 mg/dL (60-100); Iron 46 ug/dL (37-145); LDL Cholesterol Calculated 58 mg/dL (50-129); LDL HDL Ratio 1.12 RATIO (0.00-3.22); Magnesium 1.7 mg/dL (1.7-2.3); Percent Saturation 11.8 % (20-50); Phosphorus 3.4 mg/dL (2.5-4.5); Total Iron Binding Capacity 389 mcg/dl; Triglycerides 100 mg/dL (0-150); Unsaturated Iron Binding 343 ug/dL (112-347)
[2020-10-31 16:18] LABS: Folate Level 14.6 ng/mL (4.8-37.3); Vitamin B12 597 pg/mL (232-1245)
[2020-10-31 16:20] LABS: Calcium 8.8 mg/dL (8.5-10.5)
[2020-10-31 16:27] LABS: Parathyroid Hormone 42.1 pg/mL (15-65)
[2020-11-03 22:58] LABS: TSH Receptor Binding Antibody <1.00 IU/L (< OR = 2.00)
== END 2020-10-31 14:56 | disposition home or self-care (01) ==
LOC: LAB 15:00
PROVIDERS: PCP Internal Medicine; Visit Provider Surgery
DX: Z98.84 Bariatric surgery status (principal)
CPT/HCPCS: 80061; 82310; 82607; 82728; 82746; 83516; 83540; 83550; 83735; 83970; 84100; 85014; 85018; 85025; 85610

== ENCOUNTER 2020-12-13 12:53 | Outpatient (CLI) | payer OTHER, SELFPAY ==
--- NOTE | 2020-12-13 13:00 | XRR_ITS ---
PROCEDURE INFORMATION: Exam: XR Abdomen Exam date and time: 12/13/2020 1:00 PM Age: 45 years old Clinical indication: Condition or disease; Kidney or ureter condition; Calculus (stone) in kidney; Prior surgery; Surgery type: Ileostomy, hernia; Additional info: Kidney stone TECHNIQUE: Imaging protocol: XR of the abdomen. Views: Frontal supine view of the abdomen. 1 View. COMPARISON: CR XR KUB [id number] 03/16/2020 10:54 AM FINDINGS: Gastrointestinal tract: Normal. No bowel dilation. Metallic surgical clips seen in the left upper quadrant . The bowel gas pattern is nonspecific. Organs: Negative for radiodense stones in the projection of the kidneys. Bones/joints: Unremarkable. XR/XR KUB [id number] IMPRESSION: 1. No acute findings. 2. Negative for radiodense urinary tract stones 3. Multiple surgical clips left upper quadrant
== END 2020-12-13 12:54 | disposition home or self-care (01) ==
PROVIDERS: PCP Internal Medicine; Visit Provider Urology
DX: N20.0 Calculus of kidney (principal)
CPT/HCPCS: 74018; 81003

== ENCOUNTER 2021-07-27 12:28 | Outpatient (CLI) | payer OTHER, SELFPAY ==
--- NOTE | 2021-07-27 12:45 | US_ITS ---
WS: [id number] ULTRASOUND ABDOMEN CLINICAL INFORMATION: R10.9 - Unspecified abdominal pain COMPARISON: Ultrasound December 28, 2019 FINDINGS: Liver Size: Mild hepatomegaly Craniocaudal length: 16.2 cm. Echogenicity: Coarse and hypoechoic Surface nodularity: None. Mass (size and location): None. Bile ducts Intrahepatic ducts: Normal. Common bile duct diameter: 0.3 cm. Gallbladder Normal. Gallstones: None. Gallbladder sludge: None. Gallbladder wall thickening: None. Pericholecystic fluid: None. Sonographic Ndiaye sign: Absent. Pancreas Normal as visualized. Spleen Splenomegaly: None. Craniocaudal length: 10.2 cm. Right kidney: Normal. Hydronephrosis: None. Size: 11.5 cm x 7.2 cm x 4.9 cm Left kidney: Normal. Hydronephrosis: None. Size: 9.5 cm x 6.0 cm x 4.8 cm. Abdominal aorta and IVC Visualized portions are normal. Ascites: None. US/US abdomen complete* [id number] IMPRESSION: 1. Mild hepatomegaly with marked diffuse fatty infiltration of the liver simil ar to December 28, 2019. 2. Ultrasound otherwise unremarkable
[2021-07-27 13:49] LABS: Parathyroid Hormone 46.8 pg/mL (15-65)
[2021-07-27 13:56] LABS: Alanine Aminotransferase 10 U/L (0-33); Albumin Level 4.2 g/dL (3.5-5.2); Alkaline Phosphatase 51 IU/L (35-105); Aspartate Amino Transferase 13 U/L (0-32); Blood Urea Nitrogen 17 mg/dL (6-20); Carbon Dioxide 25 mmol/L (22-29); Chloride 106 mmol/L (98-107); Chol HDL Ratio 2.59 mg/dL (0.0-4.40); Cholesterol 153 mg/dL (0-200); Ferritin 29 ng/mL (15-150); Globulin 2.8 g/dL (1.3-4.6); Glomerular Filtration Rate 171.8 mL/min (90-130); Glucose 84 mg/dL (65-115); HDL Cholesterol 59 mg/dL (60-100); Iron 157 ug/dL (37-145); LDL Cholesterol Calculated 75 mg/dL (50-129); LDL HDL Ratio 1.27 RATIO (0.00-3.22); Lipase 23 U/L (13-60); Magnesium 1.9 mg/dL (1.7-2.3); Osmolality Calculated 287 mOsm/kg (285-295); Percent Saturation 43.3 % (20-50); Sodium 138 mmol/L (136-145); Thyroid Stimulating Hormone 1.23 uIU/mL (0.27-4.20); Total Bilirubin 0.5 mg/dL (0.15-1.2); Total Iron Binding Capacity 362 mcg/dl; Triglycerides 93 mg/dL (0-150); Unsaturated Iron Binding 205 ug/dL (112-347); Vitamin B12 1406 pg/mL (232-1245)
[2021-07-27 14:27] LABS: Folate Level > 20.0 ng/mL (4.8-37.3)
[2021-07-30 19:52] LABS: Zinc Level, Serum or Plasma 64 mcg/dL (60-130)
[2021-07-31 12:03] LABS: Vit D 1,25 (Oh)2, Total 80 pg/mL (18-72); Vit D2 1,25 (Oh)2 <8 pg/mL; Vit D3 1,25 (Oh)2 80 pg/mL
[2021-08-02 12:48] LABS: Vitamin B1(Thiamin) Plas/Ser 19 nmol/L (8-30)
== END 2021-07-27 12:29 | disposition home or self-care (01) ==
LOC: RAD 12:29
PROVIDERS: PCP Internal Medicine; Visit Provider Surgery
DX: R10.13 Epigastric pain (principal); R11.2 Nausea with vomiting, unspecified; E88.81 Metabolic syndrome and other insulin resistance; R16.0 Hepatomegaly, not elsewhere classified; K76.0 Fatty (change of) liver, not elsewhere classified
CPT/HCPCS: 36415; 76700; 80053; 80061; 82310; 82607; 82652; 82728; 82746; 83540; 83550; 83690; 83735; 83970; 84425; 84443; 84630; 85025

== ENCOUNTER 2021-08-16 08:31 | Outpatient (CLI) | payer OTHER, SELFPAY ==
--- NOTE | 2021-08-16 08:37 | FL_ITS ---
WS: [id number] Barium swallow and esophagram, upper GI series without air, 08/16/2021 Clinical Data: R10.9 - Unspecified abdominal pain Comparison: Upper GI series, 08/10/2020. Fluoroscopy time: 1.2 minutes. Findings: The patient swallowed the thick and thin barium, and it flowed through the hypopharynx without hesita tion. No stricture, mass, polyp or erosion was seen. The barium flowed into the esophagus and there was normal motility throughout. No hiatal hernia, refl ux, stricture, polyp, mass, erosion or ulcer was noted. The barium passed into the stomach which was well distended. No erosion, polyp, mass or deformity cou ld be seen. No gastric ulcer was present. Barium then passed into the duodenal bulb which distended normally without ulceration. The proximal small bowel is normal. FL/FL upper GI w air* [id number] Impression: Normal esophagram and upper GI series.
== END 2021-08-16 08:32 | disposition home or self-care (01) ==
PROVIDERS: PCP Internal Medicine; Visit Provider Surgery
DX: R10.9 Unspecified abdominal pain (principal)
CPT/HCPCS: 74246

== ENCOUNTER → 2021-08-20 11:28 | Outpatient (BNVA) | payer OTHER, SELFPAY | PROVIDERS: PCP Internal Medicine; Visit Provider Surgery | DX: Z20.822 Contact with and (suspected) exposure to COVID-19 (principal); R10.13 Epigastric pain | CPT/HCPCS: 87635 ==

== ENCOUNTER → 2021-08-21 20:05 | Outpatient (BNVA) | payer OTHER, SELFPAY | PROVIDERS: PCP Internal Medicine; Visit Provider Surgery | DX: R10.13 Epigastric pain (principal) | CPT/HCPCS: 87801 ==

== ENCOUNTER 2021-08-25 06:07 | Day surgery (SDC) | payer OTHER, SELFPAY ==
[2021-08-23 09:51] VITALS: BMI 27.4
--- NOTE | 2021-08-25 06:30 | P.ANESASSM_ITS ---
Pre-Anesthetic Assessment Height/Weight: Height 1.63 m Weight 72.575 kg Preop Diagnosis: Epigastric pain Operation Date: 08/25/21 07:45 Proposed Procedures p EGD 59369/R10.13(Not Applicable) - Rg Meyers MD Familial anesthetic complications: None Was Beta Paola taken within 24 hours: N/A Was Clonidine taken within 24 hours: N/A Last intake: > 8 hrs Social No alcohol and No tobacco Exam alert, oriented x 3, clear to auscultation bilaterally and regular rate & rhythm Airway Mallampati: Class II Dentition: full Pulmonary Chronic Obstructive Pulmonary Disease, Exertional Dyspnea and Sleep Apnea CV/HEM Hypertension None reported Hepatic None reported fatty liver GI Gastroesophageal Reflux Disease gastric sleeve Anesthetic Plan ASA status: 3 Anesthesia: MAC Risk of > 500 ml blood loss (7ml/kg in children): No Medications/Allergies Home Medications Medication Instructions Recorded Confirmed Last Taken Type levocetirizine 5 mg tablet (Xyzal) 5 mg PO BEDTIME 08/08/20 08/23/21 Unknown History ubrogepant 100 mg tablet (Ubrelvy) 100 mg PO PRN 08/08/20 08/23/21 08/07/20 History glucometer #1 ea 08/11/20 08/09/21 Unknown Rx lancets #100 ea 08/11/20 08/09/21 Unknown Rx omeprazole 40 mg capsule,delayed 40 mg PO BID #180 cap 10/13/20 08/23/21 Unknown Rx release ursodiol 300 mg capsule 300 mg PO BID 90 Days #180 cap 01/23/21 08/23/21 Unknown Rx vilazodone 40 mg tablet 40 mg PO DAILY@07 #60 tab 04/04/21 08/23/21 Unknown Rx trazodone 50 mg tablet 50 mg PO BEDTIME #30 tab 07/12/21 08/23/21 Unknown Rx sucralfate 1 gram tablet (Carafate) 1 g PO TID #90 tab 08/09/21 08/23/21 Unknown Rx Allergies Allergy/AdvReac Type Severity Reaction Status Date / Time amoxicillin [From Augmentin] Allergy ALGY-Rash Verified 08/23/21 09:53 clavulanic acid AdvReac nauseated Verified 08/23/21 09:53 [From Augmentin] morphine AdvReac none Verified 08/23/21 09:53 affective and nausea [facility] Anesthesia Medical History Bilateral renal stones Cervical disc disorder with myelopathy of mid-cervical region Cervical disc disorder with radiculopathy Cystitis cystica Encounter for pre-bariatric surgery counseling and education Essential tremor History of kidney stones Malabsorption of iron Menorrhagia with regular cycle Menstrual headache Mixed stress and urge urinary incontinence Both urgency and stress incontinence. History of multiple pelvic surgeries including a fistula repair. At first visit for this August 2017 she elected to pursue more conservative options including pelvic floor exercises, bladder drill, pelvic rehabilitation etc. DOMINIC on CPAP Shoulder pain, right Spondylolisthesis of cervical region Surgical History H/O tubal ligation (~2000) History of colonoscopy (03/19/18) History of endometrial ablation (10/27/19) Hysteroscopy with NovaSure endometrial ablation. Dx: Menorrhagia. [place] [facility] History of esophagogastroduodenoscopy (EGD) (03/19/18) History of hernia repair Developed hernia at ileostomy site. Required 2 different repairs with the last one using mesh. History of reversal of ileostomy History of vaginal surgery (~2010) Recto-vaginal fistula repairs (9 surgeries between 2010-). Includes use of mesh , fat flaps, and diverting ileostomy. S/P extracorporeal shock wave therapy (07/10/17) Dx: Left proximal ureteral stone with high-grade obstruction. [place] [facility] S/P extracorporeal shock wave therapy (08/23/17) Dx Left renal stone. [place] [facility] S/P laparoscopic sleeve gastrectomy (~08/2020) Family History Mother , at age 49 Brain aneurysm Father Diabetes Hypertension Other Heart disease Stroke Social History Smoking and tobacco status: former smoker Quit status (tobacco): has quit using tobacco Year quit tobacco: 04/10/2019 Alcohol intake: never Marital status: Current occupation: [employer] History of recent travel: No Female Reproductive History Date of last menstrual period: 07/08/19 Para: 3 Spontaneous abortions: No Data Anesthesia Cardiac Studies: No Data to Display
[2021-08-25 06:38] LABS: OR HCG Qualitative Urine Negative (Negative)
[2021-08-25 06:47] VITALS: BP 158/89; PULSE 77; RESP 18; TEMP 36.4; O2SAT 98
--- NOTE | 2021-08-25 06:52 | W.PM.OPSUD ---
Surgery/Procedure H&P Update DATE OF PROCEDURE: August 25, 2021 DATE H&P PERFORMED: 08/09/21 CHANGES TO PREVIOUS DOCUMENTATION: Upper GI study was done and showed normal finding status post sleeve gastrectomy PREOP DIAGNOSIS: Epigastric pain PRIMARY INDICATION FOR PROCEDURE: EGD for epigastric abdominal pain PLANNED PROCEDURE: Operation Date: 08/25/21 07:45 Proposed Procedures p EGD 02838/R10.13(Not Applicable) - Rg Meyers MD
[2021-08-25] MEDS: sodium chloride 0.9% 1,000 ML 30 ML IV (07:00)
[2021-08-25 08:01] VITALS: BP 155/94; PULSE 81; RESP 16; TEMP 36.4; O2SAT 99
--- NOTE | 2021-08-25 08:04 | ANE.PACU2 ---
Inpatient post-anesthesia follow up: Airway intact: Yes Vital signs: Temperature 97.5 F Pulse Rate 77 Respiratory Rate 18 Blood Pressure 158/89 Pulse Oximetry 98 Oxygen Delivery Me thod Oxygen Flow Rate Fraction of Inspir ed Oxygen Hydration adequate: Yes Nausea and vomiting: No Pain level: 1 Mental status: Baseline
[2021-08-25 08:22] VITALS: BP 145/89; PULSE 82; RESP 18; TEMP 36.4; O2SAT 98
== END 2021-08-25 08:28 | disposition home or self-care (01) ==
PROVIDERS: Anesthesiology; PCP Internal Medicine; Visit Provider Surgery
PROC: 0DJ08ZZ Inspection of Upper Intestinal Tract, Via Natural or Artificial Opening Endoscopic (ICD-10-PCS; CPT 43235; principal; 2021-08-25 07:45)
DX: R10.13 Epigastric pain (principal); K21.9 Gastro-esophageal reflux disease without esophagitis; K29.70 Gastritis, unspecified, without bleeding; J44.9 Chronic obstructive pulmonary disease, unspecified; G47.30 Sleep apnea, unspecified; I10 Essential (primary) hypertension; G47.33 Obstructive sleep apnea (adult) (pediatric); Z87.891 Personal history of nicotine dependence; Z82.49 Family history of ischemic heart disease and other diseases of the circulatory system; Z83.3 Family history of diabetes mellitus
CPT/HCPCS: 43239; 84703; 88305; 88342; J2704; J7030

== ENCOUNTER 2021-10-19 11:00 | Outpatient (CLI) | payer OTHER, SELFPAY ==
--- NOTE | 2021-10-19 12:30 | CT_ITS ---
WS: [id number] CT ABDOMEN AND PELVIS WITH CONTRAST HISTORY: R10.13 - Epigastric pain TECHNIQUE: Imaging performed of the abdomen and pelvis with IV contrast. Single phase imaging of the abdomen. Coronal and sagittal reformats are submitted. All CT scans at [facility] use at [address] one of these dose optimization techniques: automated exposure control; mA and/or kV adjustment per patient size (includes targeted exams where dose is matched to clinical indication); or iterative re construction. IV CONTRAST: Omnipaque 300; 50 mL IV. Oral contrast: Yes. DLP: 1035.71 mGy.cm COMPARISON: 12/28/2019 Lower thorax: Lung bases are clear. Heart is normal size. No hiatal hernia. Liver/biliary system: Normal size with no intrahepatic dilatation. Gallbladder: Normal. No gallstones or wall thickening. No pericholecystic fluid. Pancreas: Normal size pancreas and pancreatic duct. No adjacent inflammation. Spleen: Normal size spleen. No mass or infarct. Adrenal glands: Normal. Right kidney: Normal. Left kidney: Normal. Aorta: Normal. Lymphadenopathy: None. Free fluid: None. GI tract: Status post gastric sleeve procedure. No inflammation or obstruction in the proximal GI tra ct. No small bowel obstruction. Constipation. No diverticulitis. Abdominal wall: Postsurgical scarring along the RIGHT abdominal wall at the site of the prior 1ileost leah. Pelvis: No free fluid or adenopathy within the pelvis. Uterus and ovaries are negative by CT. Normall y distended bladder. Bones: L5 anterolisthesis by 3 mm. Bilateral pars defects at L5. CT/CT abdomen pelvis w con* [id number] IMPRESSION: 1. Status post gastric sleeve. No complications are evident by CT. 2. No GI tract obstruction. 3. No renal obstruction.
[2021-10-19] MEDS: iohexol 300 mg/mL 100 mL Btl IV (13:27)
== END 2021-10-19 11:01 | disposition home or self-care (01) ==
PROVIDERS: PCP Internal Medicine; Visit Provider Surgery
DX: R10.13 Epigastric pain (principal); Z98.84 Bariatric surgery status
CPT/HCPCS: 74177

== ENCOUNTER → 2021-11-27 11:52 | Outpatient (BNVA) | payer OTHER, SELFPAY | PROVIDERS: PCP Internal Medicine; Visit Provider Surgery | DX: K29.70 Gastritis, unspecified, without bleeding (principal); Z98.84 Bariatric surgery status | CPT/HCPCS: 85025 ==

== ENCOUNTER → 2021-12-10 14:06 | Outpatient (BNVA) | payer OTHER, SELFPAY | PROVIDERS: PCP Internal Medicine; Visit Provider Emergency Medicine | DX: R31.9 Hematuria, unspecified (principal); R10.9 Unspecified abdominal pain; R11.0 Nausea; Z87.442 Personal history of urinary calculi; R10.13 Epigastric pain; R31.29 Other microscopic hematuria | CPT/HCPCS: 81000 ==

== ENCOUNTER 2021-12-12 11:01 | Outpatient (CLI) | payer OTHER, SELFPAY ==
--- NOTE | 2021-12-12 11:00 | CT_ITS ---
WS: [id number] CT ABDOMEN AND PELVIS NONCONTRAST HISTORY: STONES TECHNIQUE: Imaging performed through the abdomen and pelvis. Coronal and sagittal reformats are submi tted. All CT scans at [facility] use at least one of these dose optimization techniques: auto mated exposure control; mA and/or kV adjustment per patient size (includes targeted exams where dose is matched to clinical indication); or iterative reconstruction. DLP: 1065.18 mGy.cm COMPARISON: 10/19/2021 Lower thorax: Lung bases are clear. Heart size is normal. Small hiatal hernia. Liver: Mild enlargement the liver measuring 17.6 cm in length. Vague area of decreased attenuation in the posterior RIGHT lobe the liver is probably related to an artifact. This was not present on the p rior examination. No bile duct dilatation. Gallbladder: Possible sludge within the gallbladder. No adjacent inflammation or bile duct obstructio n. Pancreas: Normal size and attenuation. Normal pancreatic duct. No pancreatitis or mass. Spleen: Mildly enlarged spleen measures 12.9 cm in length. Adrenal glands: Possible tiny LEFT adrenal adenoma. Right kidney: No obstruction or perinephric stranding. Nonobstructing 2 mm calcification in the mid k idney. Left kidney: Normal size kidney with no mass or hydronephrosis. Aorta: Mild atherosclerosis abdominal aorta with no aneurysm. No free fluid, intraperitoneal air or significant lymphadenopathy. GI tract: Prior gastric sleeve. No adjacent fluid or obstruction. There is extensive fecal material t hroughout the colon. No obstructive pattern. Greater distribution of GI contents RIGHT lower quadrant and cecum. The appendix is normal. There are a few scattered diverticula without acute diverticuliti s. Abdominal wall: No change in the anterior abdominal wall. Scar site RIGHT lower quadrant from the maurizio or ileostomy. Mild fatty replacement of the RIGHT rectus muscle. Pelvis: No free fluid or adenopathy. Urinary bladder is well distended. Uterus is mildly enlarged. Osseous structures: L5 anterolisthesis by 5 mm and bilateral pars defects at L5. CT/CT kidney stone [id number] IMPRESSION: 1. No renal obstruction or hydronephrosis. 2. Nonobstructing 2 mm calcification RIGHT kidney. 3. Normal appendix. 4. Mild hepatosplenomegaly. 5. No bile duct dilatation. 6. Prior gastric sleeve. 7. Gallbladder is well distended with low-level attenuation in the lumen. This may be sludge or stones. No adjacent inflammation. Gallbladder ultrasound may provide additional information. Gallbladder ultrasound was negative in July 2021. 8. Moderate diffuse constipation greatest in the cecum which is deep within th e pelvis and may be causing some discomfort as there is mass effect upon the ur inary bladder.
== END 2021-12-12 11:02 | disposition home or self-care (01) ==
PROVIDERS: PCP Internal Medicine; Visit Provider Urology
DX: N20.0 Calculus of kidney (principal); R16.2 Hepatomegaly with splenomegaly, not elsewhere classified; K59.00 Constipation, unspecified
CPT/HCPCS: 74176; 81003